=== PATIENT | male | born 1985 | race African-American/Black ===

== ENCOUNTER 2016-04-29 22:25 | Emergency (ER) | payer SELFPAY ==
[~2016-04-29] VITALS: Ht 185.4 cm; Wt 75.0 kg
[2016-04-29 22:29] VITALS: BP 132/88; PULSE 108; RESP 15; TEMP 98.1; O2SAT 97
[2016-04-29 23:23] VITALS: BP 113/74; PULSE 83; RESP 18; O2SAT 100
[2016-04-29] MEDS ORDERED: SODIUM CHLORIDE 0.9% FLUSH 5 ML FLUSH IVF PRN (23:30)
[2016-04-29 23:53] LABS: AUTOMATED NEUTROPHIL # 5.3 TH/MM3 (1.8-7.7); BASOPHIL # 0.1 TH/MM3 (0-0.2); BASOPHIL % 0.8 % (0.0-2.0); EOSINOPHIL # 0.1 TH/MM3 (0-0.4); EOSINOPHIL % 1.2 % (0.0-4.0); HEMATOCRIT 44.9 % (39.0-51.0); HEMO FLAGS DIFF FINAL; LYMPH % 17.2 % (9.0-44.0); LYMPHOCYTE # 1.2 TH/MM3 (1.0-4.8); MEAN CELL VOLUME 95.4 FL (80.0-100.0); MEAN CORPUSCULAR HEMOGLOBIN 33.3 PG (27.0-34.0); MEAN CORPUSCULAR HGB CONC 34.9 % (32.0-36.0); MONO % 4.9 % (0.0-8.0); NEUT % 75.9 % (16.0-70.0); PLATELET COUNT 265 TH/MM3 (150-450); RED CELL DISTRIBUTION WIDTH 13.7 % (11.6-17.2)
--- NOTE | 2016-04-29 23:56 | RADRPT ---
EXAM DATE/TIME: 04/29/2016 23:50 [facility] COMPARISON: CHEST SINGLE AP, January 28, 2016, 5:52. INDICATIONS : Pt having chest pain x 1 hour. MEDICAL HISTORY : Hiatal hernia. SURGICAL HISTORY : Hiatal hernia repair ENCOUNTER: Initial ACUITY: 1 day PAIN SCORE: 7/10 LOCATION: Bilateral chest FINDINGS: A single view of the chest demonstrates the lungs to be symmetrically aerated without evidence of mas s, infiltrate or effusion. The cardiomediastinal contours are unremarkable. Osseous structures are intact. CONCLUSION: No acute disease. Enmanuel Leger MD on April 29, 2016 at 23:54 Board Certified Radiologist. This report was verified electronically.
[2016-04-30 00:17] LABS: ALT (GPT) 21 U/L (12-78); ANION GAP 6 MEQ/L (5-15); AST (GOT) 19 U/L (15-37); BLOOD UREA NITROGEN 8 MG/DL (7-18); CHLORIDE 107 MEQ/L (98-107); GLOMERULAR FILTRATION RATE 96 ML/MIN (>89); MAGNESIUM 1.9 MG/DL (1.5-2.5); SODIUM (NA) 142 MEQ/L (136-145)
[2016-04-30 00:18] LABS: ALKALINE PHOSPHATASE 67 U/L (45-117); TOTAL BILIRUBIN ADULT 0.2 MG/DL (0.2-1.0)
--- NOTE | 2016-04-30 00:45 | PD ---
Data Data Last Documented VS Vital Signs Date Time Temp Pulse Resp B/P Pulse Ox O2 Delivery O2 Flow Rate FiO2 04/29/16 23:23 83 18 113/74 100 Room Air 04/29/16 22:29 98.1 Orders Electrocardiogram (04/29/16 22:32) Complete Blood Count With Diff (04/29/16 23:27) Comprehensive Metabolic Panel (04/29/16 23:27) Magnesium (Mg) (04/29/16 23:27) Prothrombin Time / Inr (Pt) (04/29/16 23:27) Act Partial Throm Time (Ptt) (04/29/16 23:27) Troponin I (04/29/16 23:27) Lipase (04/29/16 23:27) Chest, Single Ap (04/29/16 23:27) Ecg Monitoring (04/29/16 23:27) Bilateral Bp Monitoring (04/29/16 23:27) Iv Access Insert/Monitor (04/29/16 23:27) Oximetry (04/29/16 23:27) Oxygen Administration (04/29/16 23:27) Sodium Chloride 0.9% Flush (Ns Flush) (04/29/16 23:30) Labs Laboratory Tests Test 04/29/16 23:40 White Blood Count 7.0 TH/MM3 Red Blood Count 4.70 MIL/MM3 Hemoglobin 15.7 GM/DL Hematocrit 44.9 % Mean Corpuscular Volume 95.4 FL Mean Corpuscular Hemoglobin 33.3 PG Mean Corpuscular Hemoglobin 34.9 % Concent Red Cell Distribution Width 13.7 % Platelet Count 265 TH/MM3 Mean Platelet Volume 8.0 FL Neutrophils (%) (Auto) 75.9 % Lymphocytes (%) (Auto) 17.2 % Monocytes (%) (Auto) 4.9 % Eosinophils (%) (Auto) 1.2 % Basophils (%) (Auto) 0.8 % Neutrophils # (Auto) 5.3 TH/MM3 Lymphocytes # (Auto) 1.2 TH/MM3 Monocytes # (Auto) 0.3 TH/MM3 Eosinophils # (Auto) 0.1 TH/MM3 Basophils # (Auto) 0.1 TH/MM3 CBC Comment DIFF FINAL Differential Comment Sodium Level 142 MEQ/L Potassium Level 4.0 MEQ/L Chloride Level 107 MEQ/L Carbon Dioxide Level 29.0 MEQ/L Anion Gap 6 MEQ/L Blood Urea Nitrogen 8 MG/DL Creatinine 1.09 MG/DL Estimat Glomerular Filtration 96 ML/MIN Rate Random Glucose 87 MG/DL Calcium Level 8.9 MG/DL Magnesium Level 1.9 MG/DL Total Bilirubin 0.2 MG/DL Aspartate Amino Transf 19 U/L (AST/SGOT) Alanine Aminotransferase 21 U/L (ALT/SGPT) Alkaline Phosphatase 67 U/L Troponin I LESS THAN 0.02 NG/ML Total Protein 7.1 GM/DL Albumin 3.9 GM/DL Lipase 138 U/L MDM Supervised Visit with [facility]: No Narrative Course Protocol labs were put in. Patient left prior to being seen. Patient Instructions: General Instructions, Against Medical Advice (ED) Departure Forms: Tests/Procedures Scripts No Active Prescriptions or Reported Meds Disposition: 07 AGAINST MEDICAL ADVICE Anderson Alvarez MD Apr 30, 2016 00:45
--- NOTE | 2016-04-30 16:27 | EKG ---
Date Performed: 04/29/2016 Time Performed: 22:38:01 PTAGE: 31 years EKG: Sinus rhythm POSSIBLE RIGHT VENTRICULAR CONDUCTION DELAY ABNORMAL RHYTHM ECG PREVIOUS TRACING : 01/28/2016 05.05 Compared to prior tracing no significant change DOCTOR: Madi Barraza Interpretating Date/Time 04/30/2016 16:26:49
== END 2016-04-30 00:27 | disposition left against medical advice (07) ==
LOC: NEPC 22:25
DX: R07.9 Chest pain, unspecified (principal)
CPT/HCPCS: 71010; 80053; 83690; 83735; 84484; 85025; 85610; 85730; 93005; 99281

== ENCOUNTER 2016-05-29 18:10 | Emergency (ER) | payer SELFPAY ==
[~2016-05-29] VITALS: Ht 185.4 cm; Wt 76.0 kg
[2016-05-29 18:12] VITALS: BP 138/88; PULSE 116; RESP 20; TEMP 97.7; O2SAT 94
[2016-05-29] MEDS ORDERED: SODIUM CHLOR 0.9% 1000 ML INJ 1,000 ML IV SCH ×2 (19:05→20:16)
[2016-05-29] MEDS ORDERED: ONDANSETRON HCL 4 MG/2 ML VIAL IVP ONE (19:15)
[2016-05-29] MEDS ORDERED: LORazepam 2 MG/ML VIAL IV PUSH ONE (19:15)
--- NOTE | 2016-05-29 19:21 | RADRPT ---
EXAM DATE/TIME: 05/29/2016 19:04 [facility] COMPARISON: CHEST SINGLE AP, April 29, 2016, 23:50. INDICATIONS : Chest pain. MEDICAL HISTORY : Hiatal hernia. SURGICAL HISTORY : Hiatal hernia repair. ENCOUNTER: Initial ACUITY: 1 day PAIN SCORE: 5/10 LOCATION: Bilateral chest FINDINGS: A single view of the chest demonstrates the lungs to be symmetrically aerated without evidence of mas s, infiltrate or effusion. The cardiomediastinal contours are unremarkable. Osseous structures are intact. CONCLUSION: No acute disease. Jose Daniel Hurtado MD on May 29, 2016 at 19:19 Board Certified Radiologist. This report was verified electronically.
[2016-05-29 19:28] LABS: AUTOMATED NEUTROPHIL # 5.8 TH/MM3 (1.8-7.7); BASOPHIL # 0.1 TH/MM3 (0-0.2); BASOPHIL % 0.6 % (0.0-2.0); EOSINOPHIL % 0.1 % (0.0-4.0); HEMO FLAGS DIFF FINAL; LYMPH % 19.7 % (9.0-44.0); LYMPHOCYTE # 1.7 TH/MM3 (1.0-4.8); MEAN CELL VOLUME 94.8 FL (80.0-100.0); MEAN CORPUSCULAR HEMOGLOBIN 32.7 PG (27.0-34.0); MEAN CORPUSCULAR HGB CONC 34.5 % (32.0-36.0); MONO % 10.3 % (0.0-8.0); NEUT % 69.3 % (16.0-70.0); PLATELET COUNT 247 TH/MM3 (150-450); RED BLOOD COUNT 4.75 MIL/MM3 (4.50-5.90); RED CELL DISTRIBUTION WIDTH 13.5 % (11.6-17.2); WHITE BLOOD COUNT 8.4 TH/MM3 (4.0-11.0)
[2016-05-29 19:55] LABS: AMPHETAMINE, URINE NEG (NEG); BARBITURATES, URINE NEG (NEG); COCAINE, URINE NEG (NEG)
[2016-05-29 19:55] LABS: ANION GAP 11 MEQ/L (5-15); BICARBONATE 26.4 MEQ/L (21.0-32.0); BLOOD UREA NITROGEN 10 MG/DL (7-18); CHLORIDE 101 MEQ/L (98-107); GLOMERULAR FILTRATION RATE 95 ML/MIN (>89); MAGNESIUM 1.9 MG/DL (1.5-2.5); POTASSIUM 3.7 MEQ/L (3.5-5.1); SODIUM (NA) 138 MEQ/L (136-145)
--- NOTE | 2016-05-29 20:07 | PD ---
HPI Chief Complaint: Chest Pain Time Seen by Provider: 20:01 Travel History International Travel<30 days: No Contact w/Intl Traveler<30days: No Traveled to known affect area: No History of Present Illness HPI 31-year-old male that presents to the ED for evaluation of chest pain. Per patient this happened about 2 hours ago. Per patient he was abusing drugs including flack and Xanax. Per patient he was doing this recreationally. Per patient she's had this discomfort before similar with the same history. Per patient he did not lose consciousness. He denies any shortness of breath. Per patient the chest pain comes and goes. It feels like a pressure. Per patient he got concerned because he started getting dizzy as well as having some shakiness which is unusual for him. Per patient he feels anxious. He denies any blurry vision or double vision. He denies any trauma. He denies abusing any other drugs. No cough or runny nose. No fevers chills or sweats. No allergies to medication. Per patient his pain is 8 out of 10. Does not radiate. Nothing makes the pain better or worse. PFSH Past Medical History Hx Anticoagulant Therapy: No Blood Disorders: No Heart Rhythm Problems: No Cancer: No Cardiac Catheterization: No Cardiovascular Problems: No High Cholesterol: No Chemotherapy: No Chest Pain: Yes Congestive Heart Failure: No Cerebrovascular Accident: No Diabetes: No Diminished Hearing: No Endocrine: No Gastrointestinal Disorders: No GERD: Yes Genitourinary: No Hiatal Hernia: Yes Hypertension: No Immune Disorder: No Implanted Vascular Access Dvce: No Musculoskeletal: No Neurologic: No Psychiatric: No Reproductive: No Respiratory: No Immunizations Current: No Thyroid Disease: No Ulcer: Yes Tetanus Vaccination: Unknown Influenza Vaccination: No Past Surgical History Abdominal Surgery: Yes (ABD HERNIA REPAIR) Coronary Artery Bypass Graft: No Other Surgery: Yes Social History Alcohol Use: Yes (1-2 beers a day) Tobacco Use: Yes (1ppd) Substance Use: Yes (flakka,ecstasy) Allergies-Medications (Allergen,Severity, Reaction): Coded Allergies: No Known Allergies (Verified , 05/29/16) Reported Meds & Prescriptions Reported Meds & Active Scripts Active No Active Prescriptions or Reported Medications Review of Systems General / Constitutional: No: Fever, Chills, Weight Gain, Weight Loss, Other Eyes: No: Diploplia, Blurred Vision, Photophobia, Drainage, Redness, Foreign Body Sensation, Pain, Tearing, Blind Spots, Visual changes, Blindness, Other HENT: No: Headaches, Vertigo, Lightheadedness, Sore Throat, Rhinitis, Rhinorrhea, Congestion, Nosebleed, Neck Stiffness, Neck Pain, Masses, Gingival Bleeding, Dental Difficulties, Ear Discharge, Earache, Other Cardiovascular: Positive: Chest Pain or Discomfort, No: Palpitations, Irregular Rhythm, Tachycardia, Diaphoresis, Syncope, Dyspnea on exertion, Varicosities, Edema, Cyanosis, Varicosities, Phlebitis, Claudication, Other Respiratory: Positive: Shortness of Breath, No: Cough, Wheezing, Sneezing, Orthopnea, Hemoptysis, Stridor, Night Sweats, Pleuritic Pain, Other Gastrointestinal: No: Nausea, Vomiting, Diarrhea, Abdominal Pain, Hematemesis, Hematochezia, Constipation, Changes in Bowel Habits, Indigestion, Dysphagia, Loss of Appetite, Other Genitourinary: No: Urgency, Frequency, Dysuria, Nocturia, Hematuria, Decreased Urinary Output, Oliguria, Hesitancy, Dribbling, Incontinence, Pelvic Pain, Flank Pain, Dyspareunia, Discharge, Dysmenorrhea, Menorrhagia, Metorrhagia, Vaginal Bleeding, Other Musculoskeletal: No: Myalgias, Arthralgias, Limited ROM, Weakness, Cramping, Edema, Pain, Atrophy, Other Skin: No Rash, No Itching, No Dryness, No Lumps, No Hives, No Change in Pigmentation, No Change in nails, No Alopecia, No Lesions, No Breast Lumps, No Breast Tenderness, No Breast Swelling, No Other Neurologic: No: Weakness, Dizziness, Syncope, Focal Abnormalities, Coordination Problem, Tremor, Ataxia, Headache, Change in Mentation, Slurred Speech, Paresthesia, Incontinence, Seizures, Sensory Disturbance, Other Psychiatric: Positive: Anxiety, Substance Abuse, No: Depression, Suicidal Ideations, Disorder of Thought, Mood Disorder, Homicidal Ideation, Other Endocrine: No: Heat Intolerance, Cold Intolerance, Polyuria, Polydipsia, Other Hematologic/Lymphatic: No: Easy Bruising, Lymph Node Enlargement, Other Physical Exam Narrative GENERAL: SKIN: Warm and dry. HEAD: Atraumatic. Normocephalic. EYES: Pupils equal and round. No scleral icterus. No injection or drainage. ENT: No nasal bleeding or discharge. Mucous membranes pink and moist. Tongue is midline. No uvula deviation. NECK: Trachea midline. No JVD. CARDIOVASCULAR: Regular rate and rhythm. No murmurs, S3, S4. Pain is not reproducible with touch. RESPIRATORY: No accessory muscle use. Clear to auscultation. Breath sounds equal bilaterally. GASTROINTESTINAL: Abdomen soft, non-tender, nondistended. Hepatic and splenic margins not palpable. MUSCULOSKELETAL: Extremities without clubbing, cyanosis, or edema. No obvious deformities. Full range of motion of the upper and lower extremities bilaterally. 2+ pulses bilaterally. NEUROLOGICAL: Awake and alert. No obvious cranial nerve deficits. Motor grossly within normal limits. Five out of 5 muscle strength in the arms and legs. Normal speech. PSYCHIATRIC: Anxious mood and affect; insight and judgment normal. Data Data Last Documented VS Vital Signs Date Time Temp Pulse Resp B/P Pulse Ox O2 Delivery O2 Flow Rate FiO2 05/29/16 18:58 100 23 99 Room Air 05/29/16 18:12 97.7 138/88 Orders Electrocardiogram (05/29/16 18:38) Complete Blood Count With Diff (05/29/16 18:47) Basic Metabolic Panel (Bmp) (05/29/16 18:47) Ckmb (Isoenzyme) Profile (05/29/16 18:47) Troponin I (05/29/16 18:47) Magnesium (Mg) (05/29/16 18:47) Thyroid Stimulating Hormone (05/29/16 18:47) Chest, Single Ap (05/29/16 18:47) Drug Screen, Random Urine (05/29/16 18:47) Alcohol (Ethanol) (05/29/16 18:47) Ondansetron Inj (Zofran Inj) (05/29/16 19:15) Sodium Chlor 0.9% 1000 Ml Inj (Ns 1000 M (05/29/16 19:05) Lorazepam Inj (Ativan Inj) (05/29/16 19:15) CKMB (05/29/16 19:10) CKMB% (05/29/16 19:10) Sodium Chlor 0.9% 1000 Ml Inj (Ns 1000 M (05/29/16 20:16) Labs Laboratory Tests Test 05/29/16 05/29/16 19:10 19:23 White Blood Count 8.4 TH/MM3 Red Blood Count 4.75 MIL/MM3 Hemoglobin 15.5 GM/DL Hematocrit 45.0 % Mean Corpuscular Volume 94.8 FL Mean Corpuscular Hemoglobin 32.7 PG Mean Corpuscular Hemoglobin 34.5 % Concent Red Cell Distribution Width 13.5 % Platelet Count 247 TH/MM3 Mean Platelet Volume 7.8 FL Neutrophils (%) (Auto) 69.3 % Lymphocytes (%) (Auto) 19.7 % Monocytes (%) (Auto) 10.3 % Eosinophils (%) (Auto) 0.1 % Basophils (%) (Auto) 0.6 % Neutrophils # (Auto) 5.8 TH/MM3 Lymphocytes # (Auto) 1.7 TH/MM3 Monocytes # (Auto) 0.9 TH/MM3 Eosinophils # (Auto) 0.0 TH/MM3 Basophils # (Auto) 0.1 TH/MM3 CBC Comment DIFF FINAL Differential Comment Sodium Level 138 MEQ/L Potassium Level 3.7 MEQ/L Chloride Level 101 MEQ/L Carbon Dioxide Level 26.4 MEQ/L Anion Gap 11 MEQ/L Blood Urea Nitrogen 10 MG/DL Creatinine 1.10 MG/DL Estimat Glomerular Filtration 95 ML/MIN Rate Random Glucose 78 MG/DL Calcium Level 9.3 MG/DL Magnesium Level 1.9 MG/DL Total Creatine Kinase 1583 U/L Troponin I LESS THAN 0.02 NG/ML Thyroid Stimulating Hormone 1.220 uIU/ML 3rd Gen Ethyl Alcohol Level LESS THAN 3 MG/DL Urine Opiates Screen NEG Urine Barbiturates Screen NEG Urine Amphetamines Screen NEG Urine Benzodiazepines Screen NEG Urine Cocaine Screen NEG Urine Cannabinoids Screen NEG [facility] Medical Decision Making Medical Screen Exam Complete: Yes Emergency Medical Condition: Yes Medical Record Reviewed: Yes Interpretation(s) EKG shows some sinus tachycardia but no sign of acute ischemia or arrhythmia. CBC & BMP Diagram 05/29/16 19:10 Last Impressions Chest X-Ray 05/29/16 8717 Signed Impressions: Service Date/Time: Sunday, May 29, 2016 19:04 - CONCLUSION: No acute disease. Jose Daniel Hurtado MD Troponin was negative, CK in the 1000. Differential Diagnosis Chest pain versus a typical chest pain versus substance abuse versus normal exam Narrative Course 31-year-old male that presents to the ED for evaluation of chest pain. Patient was properly examined and was found to have signs and symptoms consistent with appears to be chest pain secondary to substance abuse. Patient states that he only uses Flakka and Xanax. Patient does have a chronic history of substance abuse in the past. This time I will do labs and imaging to rule out any sign of cardiac disease secondary to substance abuse. Labs and imaging were essentially unremarkable this time. Patient was reassured. Patient was given Ativan for his anxiety. At this time patient will be discharged home. Follow up with PCP. Stop using drugs. See ED worsening symptoms. Diagnosis Primary Impression: Chest pain in adult Additional Impressions: Polysubstance abuse Rhabdomyolysis Qualified Code: M62.82 - Non-traumatic rhabdomyolysis Patient Instructions: General Instructions Additional Instructions: Stop using drugs. Follow with PCP. See ED for any worsening symptoms. Drink plenty of fluids. Med/Other Pt SpecificInfo: No Meds Exist/No RX given Scripts No Active Prescriptions or Reported Meds Disposition: 01 DISCHARGE HOME Condition: Stable Karan Harper May 29, 2016 20:07
[2016-05-29 20:15] LABS: CREATINE KINASE 1583 U/L (39-308)
[2016-05-29 20:27] LABS: CKMB 10.3 NG/ML (0.5-3.6)
--- NOTE | 2016-05-29 20:32 | EKG ---
Date Performed: 05/29/2016 Time Performed: 18:42:47 PTAGE: 31 years EKG: ATRIAL FLUTTER/TACHYCARDIA WITH RAPID VENTRICULAR RESPONSE ABNORMAL RHYTHM ECG NO PREVIOUS TRACING DOCTOR: Sky Jyoce Interpretating Date/Time 05/29/2016 20:31:08
[2016-05-29 20:59] VITALS: BP 139/87
== END 2016-05-29 21:00 | disposition home or self-care (01) ==
LOC: NEPE 18:10
DX: R07.9 Chest pain, unspecified (principal); F19.10 Other psychoactive substance abuse, uncomplicated; M62.82 Rhabdomyolysis; R94.31 Abnormal electrocardiogram [ECG] [EKG]; R42 Dizziness and giddiness; F17.200 Nicotine dependence, unspecified, uncomplicated; Z87.19 Personal history of other diseases of the digestive system
CPT/HCPCS: 71010; 80048; 80307; 80320; 82550; 82552; 83735; 84443; 84484; 85025; 93005; 96361; 96374; 96375; 99285; J2060; J2405; J7030

== ENCOUNTER 2016-06-01 23:04 | Emergency (ER) | payer SELFPAY ==
[~2016-06-01] VITALS: Ht 185.4 cm; Wt 73.0 kg
[2016-06-01 23:06] VITALS: BP 138/99; PULSE 114; RESP 16; TEMP 99.1; O2SAT 98
--- NOTE | 2016-06-02 00:27 | PD ---
HPI Chief Complaint: Chest Pain Time Seen by Provider: 00:21 Travel History International Travel<30 days: No Contact w/Intl Traveler<30days: No Traveled to known affect area: No History of Present Illness HPI 31-year-old male here for evaluation of chest pain. Patient was seen in the emergency department for the same about 3 days ago after abusing Xanax and Flakka. He states he has not used these drugs or any other drugs since that time. He reports having a cold sensation across his chest. No dyspnea. No history of cardiac disease. 3 days ago the patient had a negative cardiac workup in the emergency department and was discharged home. PFSH Past Medical History Hx Anticoagulant Therapy: No Blood Disorders: No Heart Rhythm Problems: No Cancer: No Cardiac Catheterization: No Cardiovascular Problems: No High Cholesterol: No Chemotherapy: No Chest Pain: Yes Congestive Heart Failure: No Cerebrovascular Accident: No Diabetes: No Diminished Hearing: No Endocrine: No Gastrointestinal Disorders: No GERD: Yes Genitourinary: No Hiatal Hernia: Yes Hypertension: No Immune Disorder: No Implanted Vascular Access Dvce: No Musculoskeletal: No Neurologic: No Psychiatric: No Reproductive: No Respiratory: No Immunizations Current: No Thyroid Disease: No Ulcer: Yes Tetanus Vaccination: Unknown Influenza Vaccination: No Past Surgical History Abdominal Surgery: Yes (ABD HERNIA REPAIR) Coronary Artery Bypass Graft: No Other Surgery: Yes Social History Alcohol Use: Yes (1-2 beers a day) Tobacco Use: Yes (1ppd) Substance Use: Yes (flakka,ecstasy) Allergies-Medications (Allergen,Severity, Reaction): Coded Allergies: No Known Allergies (Verified , 06/01/16) Reported Meds & Prescriptions Reported Meds & Active Scripts Active No Active Prescriptions or Reported Medications Review of Systems Except as stated in HPI: all other systems reviewed are Neg Physical Exam Narrative GENERAL: Well-developed, well-nourished, comfortable, no acute distress. SKIN: Warm and dry. HEAD: Atraumatic. Normocephalic. EYES: Pupils equal and round. No scleral icterus. No injection or drainage. ENT: No nasal bleeding or discharge. Mucous membranes pink and moist. NECK: Trachea midline. No JVD. CARDIOVASCULAR: Regular rate and rhythm. RESPIRATORY: No accessory muscle use. Clear to auscultation. Breath sounds equal bilaterally. MUSCULOSKELETAL: No obvious deformities. No clubbing. No cyanosis. No edema. NEUROLOGICAL: Awake and alert. No obvious cranial nerve deficits. Motor grossly within normal limits. Normal speech. PSYCHIATRIC: Appropriate mood and affect; insight and judgment normal. Data Data Last Documented VS Vital Signs Date Time Temp Pulse Resp B/P Pulse Ox O2 Delivery O2 Flow Rate FiO2 06/02/16 00:39 77 16 141/81 98 Room Air 06/01/16 23:06 99.1 Orders Electrocardiogram (06/02/16 00:24) Basic Metabolic Panel (Bmp) (06/02/16 00:24) Ckmb (Isoenzyme) Profile (06/02/16 00:24) Complete Blood Count With Diff (06/02/16:24) Troponin I (06/02/16:24) Chest, Single Ap (06/02/16:24) Ecg Monitoring (06/02/16:24) Iv Access Insert/Monitor (06/02/16:24) Oximetry (06/02/16 00:24) Sodium Chloride 0.9% Flush (Ns Flush) (06/02/16 00:30) CKMB (06/02/16 00:30) CKMB% (06/02/16 00:30) Labs Laboratory Tests Test 06/02/16 00:30 White Blood Count 6.3 TH/MM3 Red Blood Count 4.90 MIL/MM3 Hemoglobin 16.0 GM/DL Hematocrit 46.6 % Mean Corpuscular Volume 95.1 FL Mean Corpuscular Hemoglobin 32.5 PG Mean Corpuscular Hemoglobin 34.2 % Concent Red Cell Distribution Width 13.5 % Platelet Count 293 TH/MM3 Mean Platelet Volume 8.6 FL Neutrophils (%) (Auto) 72.7 % Lymphocytes (%) (Auto) 21.5 % Monocytes (%) (Auto) 4.4 % Eosinophils (%) (Auto) 0.7 % Basophils (%) (Auto) 0.7 % Neutrophils # (Auto) 4.6 TH/MM3 Lymphocytes # (Auto) 1.4 TH/MM3 Monocytes # (Auto) 0.3 TH/MM3 Eosinophils # (Auto) 0.0 TH/MM3 Basophils # (Auto) 0.0 TH/MM3 CBC Comment DIFF FINAL Differential Comment Sodium Level 145 MEQ/L Potassium Level 4.3 MEQ/L Chloride Level 108 MEQ/L Carbon Dioxide Level 29.6 MEQ/L Anion Gap 7 MEQ/L Blood Urea Nitrogen 9 MG/DL Creatinine 1.11 MG/DL Estimat Glomerular Filtration 94 ML/MIN Rate Random Glucose 79 MG/DL Calcium Level 9.3 MG/DL Total Creatine Kinase 525 U/L Creatine Kinase MB 1.5 NG/ML Creatine Kinase MB % 0.3 % Troponin I LESS THAN 0.02 NG/ML MDM Medical Decision Making Medical Screen Exam Complete: Yes Emergency Medical Condition: Yes Medical Record Reviewed: Yes Interpretation(s) EKG: Sinus, rate 85, normal axis, normal intervals, no acute ischemic abnormality. Differential Diagnosis Atypical chest pain, ACS, pneumothorax, peritonitis, PE, pneumonia Narrative Course Initial vital signs showed a heart rate of 114 which improved to 77 without any intervention, blood pressure 138/99, pulse ox 98% on room air, temp of 99.1F. CBC is unremarkable. BMP is unremarkable. Cardiac enzymes are negative. Chest x-ray shows no acute disease. Patient's chest pain is very atypical. He actually describes a cold sensation over his chest. I do not believe his symptoms are cardiac in nature. He is stable for discharge home with outpatient follow-up with a primary care physician this week. He was informed on when to return to the emergency department. He verbalizes understanding and agreement with plan. Diagnosis Primary Impression: Atypical chest pain Referrals: Primary Care Physician 3 days Additional Instructions: Follow-up with a primary care physician this week. Return to the emergency department for worsening symptoms or any other concerns. Scripts No Active Prescriptions or Reported Meds Disposition: 01 DISCHARGE HOME Condition: Stable Fito Burnett MD Jun 02, 2016 00:26
[2016-06-02] MEDS ORDERED: SODIUM CHLORIDE 0.9% FLUSH 5 ML FLUSH IVF PRN (00:30)
[2016-06-02 00:37] VITALS: RESP 16
[2016-06-02 00:39] VITALS: BP 141/81; PULSE 77; RESP 16; O2SAT 98
[2016-06-02 00:54] LABS: AUTOMATED NEUTROPHIL # 4.6 TH/MM3 (1.8-7.7); BASOPHIL % 0.7 % (0.0-2.0); EOSINOPHIL % 0.7 % (0.0-4.0); HEMATOCRIT 46.6 % (39.0-51.0); HEMO FLAGS DIFF FINAL; LYMPH % 21.5 % (9.0-44.0); LYMPHOCYTE # 1.4 TH/MM3 (1.0-4.8); MEAN CELL VOLUME 95.1 FL (80.0-100.0); MEAN CORPUSCULAR HEMOGLOBIN 32.5 PG (27.0-34.0); MEAN CORPUSCULAR HGB CONC 34.2 % (32.0-36.0); MONO % 4.4 % (0.0-8.0); NEUT % 72.7 % (16.0-70.0); PLATELET COUNT 293 TH/MM3 (150-450); RED CELL DISTRIBUTION WIDTH 13.5 % (11.6-17.2); WHITE BLOOD COUNT 6.3 TH/MM3 (4.0-11.0)
[2016-06-02 01:18] LABS: CREATINE KINASE 525 U/L (39-308)
[2016-06-02 01:30] LABS: CKMB 1.5 NG/ML (0.5-3.6)
[2016-06-02 01:35] LABS: ANION GAP 7 MEQ/L (5-15); BICARBONATE 29.6 MEQ/L (21.0-32.0); BLOOD UREA NITROGEN 9 MG/DL (7-18); CHLORIDE 108 MEQ/L (98-107); GLOMERULAR FILTRATION RATE 94 ML/MIN (>89); POTASSIUM 4.3 MEQ/L (3.5-5.1); SODIUM (NA) 145 MEQ/L (136-145)
--- NOTE | 2016-06-02 01:42 | RADRPT ---
EXAM DATE/TIME: 06/02/2016 01:07 [facility] COMPARISON: CHEST SINGLE AP, May 29, 2016, 19:04. INDICATIONS : Chest pain. MEDICAL HISTORY : None. SURGICAL HISTORY : None. ENCOUNTER: Initial ACUITY: 1 day PAIN SCORE: 7/10 LOCATION: Bilateral chest FINDINGS: A single view of the chest demonstrates the lungs to be symmetrically aerated without evidence of mas s, infiltrate or effusion. The cardiomediastinal contours are unremarkable. Osseous structures are intact. CONCLUSION: No acute disease. Collins De La Torre MD on June 02, 2016 at 1:39 Board Certified Radiologist. This report was verified electronically.
--- NOTE | 2016-06-02 10:03 | EKG ---
Date Performed: 06/02/2016 Time Performed: 00:29:27 PTAGE: 31 years EKG: Sinus rhythm NORMAL ECG NO PREVIOUS TRACING DOCTOR: Anderson Lowery Interpretating Date/Time 06/02/2016 10:02:18
== END 2016-06-02 02:01 | disposition home or self-care (01) ==
LOC: NEPC 23:04
DX: R07.89 Other chest pain (principal); F17.210 Nicotine dependence, cigarettes, uncomplicated
CPT/HCPCS: 71010; 80048; 82550; 82552; 84484; 85025; 93005

== ENCOUNTER 2016-06-02 21:17 | Emergency (ER) | payer SELFPAY ==
[~2016-06-02] VITALS: Ht 182.9 cm; Wt 65.0 kg
[2016-06-02 21:23] VITALS: BP 118/63; PULSE 98; RESP 16; TEMP 98.5; O2SAT 98
[2016-06-02] MEDS ORDERED: ASPIRIN 81 MG CHEW TAB PO ONE (21:45)
[2016-06-02] MEDS ORDERED: SODIUM CHLOR 0.9% 1000 ML INJ 1,000 ML IV ONE (21:45)
--- NOTE | 2016-06-02 22:45 | RADRPT ---
EXAM DATE/TIME: 06/02/2016 21:48 [facility] COMPARISON: CHEST PA & LAT, October 20, 2014, 14:18. INDICATIONS : Chest pain. MEDICAL HISTORY : Hiatal hernia. SURGICAL HISTORY : Hiatal hernia repair. ENCOUNTER: Initial ACUITY: 1 day PAIN SCORE: 5/10 LOCATION: chest FINDINGS: PA and lateral views of the chest demonstrate the lungs to be symmetrically aerated without evidence of mass, infiltrate or effusion. The cardiomediastinal contours are unremarkable. Osseous structure s are intact. CONCLUSION: No acute disease. No significant change has occurred. Brain Rodriguez MD on June 02, 2016 at 22:43 Board Certified Radiologist. This report was verified electronically.
[2016-06-02 22:48] LABS: AUTOMATED NEUTROPHIL # 3.8 TH/MM3 (1.8-7.7); BASOPHIL # 0.1 TH/MM3 (0-0.2); EOSINOPHIL % 0.2 % (0.0-4.0); HEMO FLAGS DIFF FINAL; LYMPH % 25.4 % (9.0-44.0); LYMPHOCYTE # 1.5 TH/MM3 (1.0-4.8); MEAN CELL VOLUME 95.2 FL (80.0-100.0); MEAN CORPUSCULAR HEMOGLOBIN 32.7 PG (27.0-34.0); MEAN CORPUSCULAR HGB CONC 34.4 % (32.0-36.0); NEUT % 65.4 % (16.0-70.0); PLATELET COUNT 254 TH/MM3 (150-450); RED BLOOD COUNT 4.41 MIL/MM3 (4.50-5.90); RED CELL DISTRIBUTION WIDTH 13.4 % (11.6-17.2); WHITE BLOOD COUNT 5.9 TH/MM3 (4.0-11.0)
[2016-06-02 23:01] LABS: APTT (PATIENT) 27.7 SEC (24.3-30.1); PROTHROMBIN TIME - PATIENT 10.7 SEC (9.8-11.6)
[2016-06-02 23:12] VITALS: BP 134/88; PULSE 86; RESP 18; O2SAT 100
[2016-06-02 23:12] LABS: ANION GAP 12 MEQ/L (5-15); AST (GOT) 32 U/L (15-37); BICARBONATE 23.6 MEQ/L (21.0-32.0); BLOOD UREA NITROGEN 8 MG/DL (7-18); CHLORIDE 103 MEQ/L (98-107); GLOMERULAR FILTRATION RATE 90 ML/MIN (>89); POTASSIUM 3.9 MEQ/L (3.5-5.1); SODIUM (NA) 139 MEQ/L (136-145)
[2016-06-02 23:23] LABS: ALKALINE PHOSPHATASE 50 U/L (45-117); ALT (GPT) 29 U/L (12-78); CREATINE KINASE 489 U/L (39-308); TOTAL BILIRUBIN ADULT 0.5 MG/DL (0.2-1.0)
[2016-06-02 23:35] LABS: CKMB 2.3 NG/ML (0.5-3.6)
--- NOTE | 2016-06-03 01:04 | PD ---
HPI Chief Complaint: Chest Pain Time Seen by Provider: 21:29 Travel History International Travel<30 days: No Contact w/Intl Traveler<30days: No Traveled to known affect area: No History of Present Illness HPI Patient is a 31-year-old male who comes in complaining of chest pain radiating to his left arm. He has been here multiple times in the past few weeks for the same complaint. He says he used Floxin tonight and the pain started a few hours after that. This is the same story each time he comes in. He denies fever or chills. He denies shortness of breath, nausea or vomiting. He has no cardiac problems that he knows of. PFSH Past Medical History Hx Anticoagulant Therapy: No Blood Disorders: No Heart Rhythm Problems: No Cancer: No Cardiac Catheterization: No Cardiovascular Problems: No High Cholesterol: No Chemotherapy: No Chest Pain: Yes Congestive Heart Failure: No Cerebrovascular Accident: No Diabetes: No Diminished Hearing: No Endocrine: No Gastrointestinal Disorders: No GERD: Yes Genitourinary: No Hiatal Hernia: Yes Hypertension: No Immune Disorder: No Implanted Vascular Access Dvce: No Musculoskeletal: No Neurologic: No Psychiatric: No Reproductive: No Respiratory: No Immunizations Current: No Thyroid Disease: No Ulcer: Yes Tetanus Vaccination: Unknown Influenza Vaccination: No Past Surgical History Abdominal Surgery: Yes (ABD HERNIA REPAIR) Coronary Artery Bypass Graft: No Other Surgery: Yes Social History Alcohol Use: Yes (1-2 beers a day) Tobacco Use: Yes (1ppd) Substance Use: Yes (flakka,ecstasy) Allergies-Medications (Allergen,Severity, Reaction): Coded Allergies: No Known Allergies (Verified , 06/02/16) Reported Meds & Prescriptions Reported Meds & Active Scripts Active No Active Prescriptions or Reported Medications Review of Systems Except as stated in HPI: all other systems reviewed are Neg General / Constitutional: No: Fever, Chills HENT: No: Headaches Cardiovascular: Positive: Chest Pain or Discomfort Respiratory: No: Shortness of Breath Gastrointestinal: No: Nausea, Vomiting Musculoskeletal: Positive: Pain Skin: No Rash, No Change in Pigmentation Neurologic: No: Weakness, Dizziness Physical Exam Narrative GENERAL: Awake and alert, in no acute distress. SKIN: Warm and dry. HEAD: Atraumatic. Normocephalic. EYES: Pupils equal and round. No scleral icterus. Extraocular movements intact. ENT: Mucous membranes pink and moist. NECK: Trachea midline. No JVD. CARDIOVASCULAR: Regular rate and rhythm. No murmur appreciated. RESPIRATORY: No accessory muscle use. Clear to auscultation. Breath sounds equal bilaterally. GASTROINTESTINAL: Abdomen soft, non-tender, nondistended. MUSCULOSKELETAL: No obvious deformities. No clubbing. No cyanosis. No edema. NEUROLOGICAL: Awake and alert. No obvious cranial nerve deficits. Motor grossly within normal limits. Normal speech. PSYCHIATRIC: Appropriate mood and affect; insight and judgment normal. Data Data Last Documented VS Vital Signs Date Time Temp Pulse Resp B/P Pulse Ox O2 Delivery O2 Flow Rate FiO2 06/02/16 23:12 86 18 134/88 100 Room Air 06/02/16 21:23 98.5 Orders Ckmb (Isoenzyme) Profile (06/02/16 21:37) Complete Blood Count With Diff (06/02/16 21:37) Comprehensive Metabolic Panel (06/02/16 21:37) Prothrombin Time / Inr (Pt) (06/02/16 21:37) Act Partial Throm Time (Ptt) (06/02/16 21:37) Troponin I (06/02/16 21:37) Aspirin Chew (Aspirin Chew) (06/02/16 21:45) Chest, Pa & Lat (06/02/16 21:37) Sodium Chlor 0.9% 1000 Ml Inj (Ns 1000 M (06/02/16 21:45) CKMB (06/02/16 21:42) CKMB% (06/02/16 21:42) Labs Laboratory Tests Test 06/02/16 21:42 White Blood Count 5.9 TH/MM3 Red Blood Count 4.41 MIL/MM3 Hemoglobin 14.4 GM/DL Hematocrit 42.0 % Mean Corpuscular Volume 95.2 FL Mean Corpuscular Hemoglobin 32.7 PG Mean Corpuscular Hemoglobin 34.4 % Concent Red Cell Distribution Width 13.4 % Platelet Count 254 TH/MM3 Mean Platelet Volume 8.5 FL Neutrophils (%) (Auto) 65.4 % Lymphocytes (%) (Auto) 25.4 % Monocytes (%) (Auto) 8.0 % Eosinophils (%) (Auto) 0.2 % Basophils (%) (Auto) 1.0 % Neutrophils # (Auto) 3.8 TH/MM3 Lymphocytes # (Auto) 1.5 TH/MM3 Monocytes # (Auto) 0.5 TH/MM3 Eosinophils # (Auto) 0.0 TH/MM3 Basophils # (Auto) 0.1 TH/MM3 CBC Comment DIFF FINAL Differential Comment Prothrombin Time 10.7 SEC Prothromb Time International 1.0 RATIO Ratio Activated Partial 27.7 SEC Thromboplast Time Sodium Level 139 MEQ/L Potassium Level 3.9 MEQ/L Chloride Level 103 MEQ/L Carbon Dioxide Level 23.6 MEQ/L Anion Gap 12 MEQ/L Blood Urea Nitrogen 8 MG/DL Creatinine 1.16 MG/DL Estimat Glomerular Filtration 90 ML/MIN Rate Random Glucose 51 MG/DL Calcium Level 8.6 MG/DL Total Bilirubin 0.5 MG/DL Aspartate Amino Transf 32 U/L (AST/SGOT) Alanine Aminotransferase 29 U/L (ALT/SGPT) Alkaline Phosphatase 50 U/L Total Creatine Kinase 489 U/L Creatine Kinase MB 2.3 NG/ML Creatine Kinase MB % 0.5 % Troponin I LESS THAN 0.02 NG/ML Total Protein 7.2 GM/DL Albumin 4.0 GM/DL MDM Medical Decision Making Medical Screen Exam Complete: Yes Emergency Medical Condition: Yes Medical Record Reviewed: Yes Interpretation(s) ECG shows normal sinus rhythm at 96, no ST elevation or depression. Differential Diagnosis Drug abuse versus ACS (unlikely) versus musculoskeletal pain Narrative Course Patient is a 31-year-old male who comes in complaining of chest pain after using Flock. He has been here multiple times to the same thing. Exam shows no acute abnormalities. IV established, patient connected to the tray server. Labs sent. Troponin is negative. Labs show no other acute abnormalities. Patient advised to stop using Flock. He is asking to leave. Will be discharged home. Advised to return to the ED as needed for any worsening symptoms. Diagnosis Primary Impression: Chest pain in adult Additional Impression: Drug abuse, amphetamine type Patient Instructions: Chest Pain (ED), General Instructions Additional Instructions: Stop using Flacca. Follow up with a primary physician. Return to the ED as needed for any worsening symptoms Scripts No Active Prescriptions or Reported Meds Disposition: 01 DISCHARGE HOME Condition: Stable Vannessa Vitale MD Jun 03, 2016 01:04
--- NOTE | 2016-06-03 23:49 | EKG ---
Date Performed: 06/02/2016 Time Performed: 21:25:59 PTAGE: 31 years EKG: Sinus rhythm SEPTAL MYOCARDIAL INFARCTION ABNORMAL ECG PREVIOUS TRACING : 06/02/2016 00.29 Compared to prior tracing no significant change DOCTOR: Madi Barraza Interpretating Date/Time 06/03/2016 23:48:28
== END 2016-06-03 04:15 | disposition home or self-care (01) ==
LOC: NEPE 21:17
DX: R07.9 Chest pain, unspecified (principal); F15.10 Other stimulant abuse, uncomplicated; R94.31 Abnormal electrocardiogram [ECG] [EKG]; M79.602 Pain in left arm; F17.200 Nicotine dependence, unspecified, uncomplicated; Z87.19 Personal history of other diseases of the digestive system
CPT/HCPCS: 71020; 80053; 82550; 82552; 84484; 85025; 85610; 85730; 93005; 99285; J7030

== ENCOUNTER 2016-06-10 05:52 | Emergency (ER) | payer SELFPAY ==
[~2016-06-10] VITALS: Ht 177.8 cm; Wt 72.0 kg
[2016-06-10 06:01] VITALS: BP 154/92; PULSE 124; RESP 18; TEMP 98.9; O2SAT 97
[2016-06-10] MEDS ORDERED: SODIUM CHLORIDE 0.9% FLUSH 5 ML FLUSH IVF PRN (06:15)
[2016-06-10] MEDS ORDERED: SODIUM CHLOR 0.9% 1000 ML INJ 1,000 ML IV ONE (06:15)
[2016-06-10] MEDS ORDERED: ASPIRIN 81 MG CHEW TAB PO ONE (06:15)
[2016-06-10 06:48] VITALS: RESP 20; O2SAT 97
[2016-06-10 06:49] VITALS: BP_SYST 158; BP_SYST 160; BP_DIAS 85; BP_DIAS 90
--- NOTE | 2016-06-10 06:50 | RADRPT ---
EXAM DATE/TIME: 06/10/2016 06:19 [facility] COMPARISON: CHEST SINGLE AP, June 02, 2016, 1:07. INDICATIONS : Chest pain. MEDICAL HISTORY : None. SURGICAL HISTORY : None. ENCOUNTER: Initial ACUITY: 1 day PAIN SCORE: 7/10 LOCATION: Bilateral chest FINDINGS: A single view of the chest demonstrates the lungs to be symmetrically aerated without evidence of mas s, infiltrate or effusion. The cardiomediastinal contours are unremarkable. Osseous structures are intact. CONCLUSION: No acute cardiopulmonary process. Deshaun Massey MD on June 10, 2016 at 6:49 Board Certified Radiologist. This report was verified electronically.
--- NOTE | 2016-06-10 06:56 | PD ---
HPI Chief Complaint: Chest Pain Time Seen by Provider: 06:10 Travel History International Travel<30 days: No Contact w/Intl Traveler<30days: No Traveled to known affect area: No History of Present Illness HPI 31-year-old male presents to the emergency department for evaluation of chest pain. Patient reports just prior to onset of chest pain and prior to arrival to the emergency department ingested Flakka. Patient complains of chest pain and racing of his heart. No syncope no near syncope no shortness of breath no sweats no nausea no vomiting. Patient denies chronic medical conditions asthma cardiac disease or diabetes. Patient rates pain as moderate to severe. Patient denies any back pain abdominal pain or extremity pain. Patient denies any injury or fall. Patient unable to identify exacerbating or alleviating factors. PFSH Past Medical History Narrative Medical Chest pain reflux hiatal hernia herniorrhaphy alcohol use tobacco use substance abuse nursing notes reviewed Hx Anticoagulant Therapy: No Blood Disorders: No Heart Rhythm Problems: No Cancer: No Cardiac Catheterization: No Cardiovascular Problems: No High Cholesterol: No Chemotherapy: No Chest Pain: Yes Congestive Heart Failure: No Cerebrovascular Accident: No Diabetes: No Diminished Hearing: No Endocrine: No Gastrointestinal Disorders: No GERD: Yes Genitourinary: No Hiatal Hernia: Yes Hypertension: No Immune Disorder: No Implanted Vascular Access Dvce: No Musculoskeletal: No Neurologic: No Psychiatric: No Reproductive: No Respiratory: No Immunizations Current: No Thyroid Disease: No Ulcer: Yes Past Surgical History Abdominal Surgery: Yes (ABD HERNIA REPAIR) Coronary Artery Bypass Graft: No Other Surgery: Yes Social History Alcohol Use: Yes (1-2 beers a day) Tobacco Use: Yes (1ppd) Substance Use: Yes (flakka,ecstasy) Allergies-Medications (Allergen,Severity, Reaction): Coded Allergies: No Known Allergies (Verified , 06/10/16) Reported Meds & Prescriptions Reported Meds & Active Scripts Active No Active Prescriptions or Reported Medications Review of Systems Except as stated in HPI: all other systems reviewed are Neg General / Constitutional: No: Fever, Chills HENT: No: Congestion Cardiovascular: Positive: Chest Pain or Discomfort Respiratory: No: Shortness of Breath Gastrointestinal: No: Nausea, Vomiting, Abdominal Pain Genitourinary: No: Flank Pain Musculoskeletal: No: Myalgias, Arthralgias Skin: No Rash Neurologic: No: Weakness Psychiatric: Positive: Anxiety, Substance Abuse Hematologic/Lymphatic: No: Lymph Node Enlargement Physical Exam Narrative GENERAL: Well-developed well-nourished male in no acute distress no respiratory distress; GCS 15 SKIN: Warm and dry. HEAD: Atraumatic. Normocephalic. EYES: Pupils equal and round. No scleral icterus. No injection or drainage. ENT: No nasal bleeding or discharge. Mucous membranes pink and moist. NECK: Trachea midline. No JVD. CARDIOVASCULAR: Increased Regular rate and rhythm. RESPIRATORY: No accessory muscle use. Clear to auscultation. Breath sounds equal bilaterally. GASTROINTESTINAL: Abdomen soft, non-tender, nondistended. Hepatic and splenic margins not palpable. MUSCULOSKELETAL: Extremities without clubbing, cyanosis, or edema. No obvious deformities. NEUROLOGICAL: Awake and alert. No obvious cranial nerve deficits. Motor grossly within normal limits. Five out of 5 muscle strength in the arms and legs. Normal speech. PSYCHIATRIC: Appropriate mood and affect; insight and judgment normal. Data Data Last Documented VS Vital Signs Date Time Temp Pulse Resp B/P Pulse Ox O2 Delivery O2 Flow Rate FiO2 06/10/16 06:49 160/90 158/85 06/10/16 06:48 20 97 Room Air 06/10/16 06:01 98.9 124 Orders Electrocardiogram (06/10/16 06:10) Basic Metabolic Panel (Bmp) (06/10/16 06:10) Ckmb (Isoenzyme) Profile (06/10/16 06:10) Complete Blood Count With Diff (06/10/16 06:10) Magnesium (Mg) (06/10/16 06:10) Prothrombin Time / Inr (Pt) (06/10/16 06:10) Act Partial Throm Time (Ptt) (06/10/16 06:10) Troponin I (06/10/16 06:10) Chest, Single Ap (06/10/16 06:10) Ecg Monitoring (06/10/16 06:10) Bilateral Bp Monitoring (06/10/16 06:10) Iv Access Insert/Monitor (06/10/16 06:10) Oximetry (06/10/16 06:10) Oxygen Administration (06/10/16 06:10) Aspirin Chew (Aspirin Chew) (06/10/16 06:15) Sodium Chloride 0.9% Flush (Ns Flush) (06/10/16 06:15) Sodium Chlor 0.9% 1000 Ml Inj (Ns 1000 M (06/10/16 06:15) Alcohol (Ethanol) (06/10/16 06:10) Drug Screen, Random Urine (06/10/16 06:10) Nitroglycerin Sl (Nitrostat Sl) (06/10/16 07:15) Labs Laboratory Tests Test 06/10/16 06:40 Prothrombin Time 10.9 SEC Prothromb Time International 1.0 RATIO Ratio Activated Partial 25.4 SEC Thromboplast Time MDM Medical Decision Making Medical Screen Exam Complete: Yes Emergency Medical Condition: Yes Medical Record Reviewed: Yes Interpretation(s) EKGs sinus rhythm QS septally with out reciprocal changes age-indeterminate noted on previous EKG 06/02/16 Differential Diagnosis Chest pain, ACS, myocardial infarction, aortic dissection, PE, pneumothorax, esophageal spasm, polysubstance abuse Narrative Course Patient placed on manager monitoring IV access obtained specimens collected and sent for resulting EKG ordered patient administered aspirin 162 mg by mouth and normal saline bolus Scripts No Active Prescriptions or Reported Meds Elisha Bae MD Jun 10, 2016 06:56
[2016-06-10] MEDS ORDERED: NITROGLYCERIN 0.4 MG SL 25 TABS/BTL SL PRN (07:15)
[2016-06-10 07:19] LABS: PROTHROMBIN TIME - PATIENT 10.9 SEC (9.8-11.6)
[2016-06-10 07:20] LABS: APTT (PATIENT) 25.4 SEC (24.3-30.1)
[2016-06-10 07:34] LABS: ANION GAP 8 MEQ/L (5-15); BICARBONATE 24.9 MEQ/L (21.0-32.0); BLOOD UREA NITROGEN 8 MG/DL (7-18); CHLORIDE 107 MEQ/L (98-107); CREATINE KINASE 296 U/L (39-308); GLOMERULAR FILTRATION RATE 101 ML/MIN (>89); MAGNESIUM 1.7 MG/DL (1.5-2.5); SODIUM (NA) 140 MEQ/L (136-145)
[2016-06-10 07:37] LABS: POTASSIUM 4.7 MEQ/L (3.5-5.1)
[2016-06-10 07:54] LABS: CKMB 2.1 NG/ML (0.5-3.6)
[2016-06-10 08:03] LABS: AUTOMATED NEUTROPHIL # 3.4 TH/MM3 (1.8-7.7); BASOPHIL % 0.9 % (0.0-2.0); EOSINOPHIL % 0.7 % (0.0-4.0); HEMATOCRIT 41.3 % (39.0-51.0); HEMO FLAGS DIFF FINAL; LYMPH % 26.8 % (9.0-44.0); LYMPHOCYTE # 1.4 TH/MM3 (1.0-4.8); MEAN CELL VOLUME 95.1 FL (80.0-100.0); MEAN CORPUSCULAR HEMOGLOBIN 33.1 PG (27.0-34.0); MEAN CORPUSCULAR HGB CONC 34.8 % (32.0-36.0); NEUT % 65.6 % (16.0-70.0); PLATELET COUNT 233 TH/MM3 (150-450); RED BLOOD COUNT 4.35 MIL/MM3 (4.50-5.90); RED CELL DISTRIBUTION WIDTH 13.3 % (11.6-17.2); WHITE BLOOD COUNT 5.1 TH/MM3 (4.0-11.0)
[2016-06-10 08:23] VITALS: BP 128/72; PULSE 93; RESP 12; O2SAT 100
[2016-06-10 09:25] VITALS: BP 134/86; PULSE 88; RESP 14; O2SAT 100
--- NOTE | 2016-06-10 09:26 | PD ---
Physical Exam Date Seen by Provider: Jun 10, 2016 Time Seen by Provider: 09:24 Narrative 31-year-old male who has been in the ER multiple times for chest pain came in earlier and was seen by the previous ER physician for chest pain. Sign out was to follow-up on the blood test results. Patient has extremely low risk for coronary artery disease and hence as per the previous ER physician's opinion patient could go home if the workup was negative. Test results are back and they're all within normal limits including the troponin. Chest x-rays within normal limit as well. Patient continues to have chest pain. In my opinion he has history of chronic chest pain. I will discharge him and have her follow up with his primary care at this point. Data Data Last Documented VS Vital Signs Date Time Temp Pulse Resp B/P Pulse Ox O2 Delivery O2 Flow Rate FiO2 06/10/16 09:25 88 14 134/86 100 Room Air Orders Electrocardiogram (06/10/16 06:10) Basic Metabolic Panel (Bmp) (06/10/16 06:10) Ckmb (Isoenzyme) Profile (06/10/16 06:10) Complete Blood Count With Diff (06/10/16 06:10) Magnesium (Mg) (06/10/16 06:10) Prothrombin Time / Inr (Pt) (06/10/16 06:10) Act Partial Throm Time (Ptt) (06/10/16 06:10) Troponin I (06/10/16 06:10) Chest, Single Ap (06/10/16 06:10) Ecg Monitoring (06/10/16 06:10) Bilateral Bp Monitoring (06/10/16 06:10) Iv Access Insert/Monitor (06/10/16 06:10) Oximetry (06/10/16 06:10) Oxygen Administration (06/10/16 06:10) Aspirin Chew (Aspirin Chew) (06/10/16 06:15) Sodium Chloride 0.9% Flush (Ns Flush) (06/10/16 06:15) Sodium Chlor 0.9% 1000 Ml Inj (Ns 1000 M (06/10/16 06:15) Alcohol (Ethanol) (06/10/16 06:10) Nitroglycerin Sl (Nitrostat Sl) (06/10/16 07:15) CKMB (06/10/16 06:40) CKMB% (06/10/16 06:40) Ketorolac Inj (Toradol Inj) (06/10/16 09:30) Labs Laboratory Tests Test 06/10/16 06/10/16 06:40 07:45 Prothrombin Time 10.9 SEC Prothromb Time International 1.0 RATIO Ratio Activated Partial 25.4 SEC Thromboplast Time Sodium Level 140 MEQ/L Potassium Level 4.7 MEQ/L Chloride Level 107 MEQ/L Carbon Dioxide Level 24.9 MEQ/L Anion Gap 8 MEQ/L Blood Urea Nitrogen 8 MG/DL Creatinine 1.05 MG/DL Estimat Glomerular Filtration 101 ML/MIN Rate Random Glucose 94 MG/DL Calcium Level 8.7 MG/DL Magnesium Level 1.7 MG/DL Total Creatine Kinase 296 U/L Creatine Kinase MB 2.1 NG/ML Troponin I LESS THAN 0.02 NG/ML Ethyl Alcohol Level LESS THAN 3 MG/DL White Blood Count 5.1 TH/MM3 Red Blood Count 4.35 MIL/MM3 Hemoglobin 14.4 GM/DL Hematocrit 41.3 % Mean Corpuscular Volume 95.1 FL Mean Corpuscular Hemoglobin 33.1 PG Mean Corpuscular Hemoglobin 34.8 % Concent Red Cell Distribution Width 13.3 % Platelet Count 233 TH/MM3 Mean Platelet Volume 8.1 FL Neutrophils (%) (Auto) 65.6 % Lymphocytes (%) (Auto) 26.8 % Monocytes (%) (Auto) 6.0 % Eosinophils (%) (Auto) 0.7 % Basophils (%) (Auto) 0.9 % Neutrophils # (Auto) 3.4 TH/MM3 Lymphocytes # (Auto) 1.4 TH/MM3 Monocytes # (Auto) 0.3 TH/MM3 Eosinophils # (Auto) 0.0 TH/MM3 Basophils # (Auto) 0.0 TH/MM3 CBC Comment DIFF FINAL Differential Comment MDM Supervised Visit with [facility]IRAG: No Diagnosis Primary Impression: Nonspecific chest pain Additional Impression: Chronic chest pain Referrals: Primary Care Physician 1 week Additional Instruction: Please return to the ER if the condition worsens. Otherwise follow-up with your primary care. Med/Other Pt SpecificInfo: No Change to Meds Scripts No Active Prescriptions or Reported Meds Disposition: 01 DISCHARGE HOME Condition: Stable Humaira Noonan MD Jun 10, 2016 09:26 Humaira Noonan MD Jun 10, 2016 09:26
[2016-06-10] MEDS ORDERED: KETOROLAC TROMETHAMINE 30 MG/ML (IVP) VIAL IV PUSH ONE (09:30)
--- NOTE | 2016-06-11 20:32 | EKG ---
Date Performed: 06/10/2016 Time Performed: 07:11:29 PTAGE: 31 years EKG: Sinus rhythm SEPTAL MYOCARDIAL INFARCTION ABNORMAL ECG Compared to the PREVIOUS TRACING from 06/02/16, no significant change DOCTOR: Timothy Ziegler Interpretating Date/Time 06/11/2016 20:31:50
== END 2016-06-10 10:33 | disposition home or self-care (01) ==
LOC: NEPC 05:52
DX: R07.9 Chest pain, unspecified (principal); F17.210 Nicotine dependence, cigarettes, uncomplicated; F15.90 Other stimulant use, unspecified, uncomplicated; R94.31 Abnormal electrocardiogram [ECG] [EKG]
CPT/HCPCS: 71010; 80048; 80307; 82550; 82552; 83735; 84484; 85025; 85610; 85730; 93005; 96374; 99285; J1885; J7030

== ENCOUNTER 2016-06-15 16:10 | Emergency (ER) | payer SELFPAY ==
[~2016-06-15] VITALS: Ht 185.4 cm; Wt 75.0 kg
[2016-06-15 16:12] VITALS: BP 146/98; PULSE 132; RESP 20; TEMP 97.9; O2SAT 97
[2016-06-15] MEDS ORDERED: ACETAMINOPHEN 500 MG CPLT PO ONE (17:00)
--- NOTE | 2016-06-15 17:32 | RADRPT ---
EXAM DATE/TIME: 06/15/2016 17:14 [facility] COMPARISON: CHEST SINGLE AP, June 10, 2016, 6:19. INDICATIONS : Chest pain for 1 hour. MEDICAL HISTORY : None. SURGICAL HISTORY : None. ENCOUNTER: Initial ACUITY: 1 day PAIN SCORE: 10/10 LOCATION: Bilateral chest FINDINGS: A single view of the chest demonstrates the lungs to be symmetrically aerated without evidence of mas s, infiltrate or effusion. The cardiomediastinal contours are unremarkable. Osseous structures are intact. CONCLUSION: Normal examination. Jesús Zambrano MD on June 15, 2016 at 17:31 Board Certified Radiologist. This report was verified electronically.
--- NOTE | 2016-06-15 17:40 | PD ---
HPI Chief Complaint: Chest Pain Time Seen by Provider: 16:56 Travel History International Travel<30 days: No Contact w/Intl Traveler<30days: No Traveled to known affect area: No History of Present Illness HPI Patient is a 31-year-old male presents emergency department for the fifth time recently with complaint of chest pain after smoking flacca. Patient states that he smoked approximately 1 hour prior to arrival. Shortly after patient developed substernal chest discomfort radiating throughout the chest. This is worse with movement, deep inspiration. He denies any significant shortness of breath. When asked the patient was causing his pain patient states "it's because I smoke". When asked why he doesn't quit, patient states "I like using ". He does not have any cardiac risk factors, no family history of early onset heart disease. No recent travel or PE risk factors. PFSH Past Medical History Hx Anticoagulant Therapy: No Blood Disorders: No Heart Rhythm Problems: No Cancer: No Cardiac Catheterization: No Cardiovascular Problems: No High Cholesterol: No Chemotherapy: No Chest Pain: Yes Congestive Heart Failure: No Cerebrovascular Accident: No Diabetes: No Diminished Hearing: No Endocrine: No Gastrointestinal Disorders: No GERD: Yes Genitourinary: No Hiatal Hernia: Yes Hypertension: No Immune Disorder: No Implanted Vascular Access Dvce: No Musculoskeletal: No Neurologic: No Psychiatric: No Reproductive: No Respiratory: No Immunizations Current: No Thyroid Disease: No Ulcer: Yes Tetanus Vaccination: > 5 Years Past Surgical History Abdominal Surgery: Yes (ABD HERNIA REPAIR) Coronary Artery Bypass Graft: No Other Surgery: Yes Social History Alcohol Use: Yes (1-2 beers a day) Tobacco Use: Yes (1ppd) Substance Use: Yes (flakka,ecstasy- FLAKKA USED 1.5 HRS AGO) Allergies-Medications (Allergen,Severity, Reaction): Coded Allergies: No Known Allergies (Verified , 06/15/16) Reported Meds & Prescriptions Reported Meds & Active Scripts Active No Active Prescriptions or Reported Medications Review of Systems Except as stated in HPI: all other systems reviewed are Neg Physical Exam Narrative GENERAL: Anxious fidgeting male in no acute distress SKIN: Warm and dry. HEAD: Normocephalic. EYES: Pupils equal and round. 5 mm. No scleral icterus. No injection or drainage. ENT: No nasal bleeding or discharge. Mucous membranes pink and moist. NECK: Supple CARDIOVASCULAR: Borderline tachycardic with heart rate in the 90s to 110s, regular rhythm. No murmur appreciated. Reproducible tenderness to palpation of the chest wall. RESPIRATORY: No accessory muscle use. Clear to auscultation. Breath sounds equal bilaterally. GASTROINTESTINAL: Abdomen soft, non-tender, nondistended. MUSCULOSKELETAL: Moves all extremity's normally no edema NEUROLOGICAL: Awake and alert. Normal speech. PSYCHIATRIC: Appropriate mood and affect; insight and judgment normal. Data Data Last Documented VS Vital Signs Date Time Temp Pulse Resp B/P Pulse Ox O2 Delivery O2 Flow Rate FiO2 06/15/16 16:12 97.9 132 20 146/98 97 Orders Electrocardiogram (06/15/16 ) Chest, Single Ap (06/15/16 ) Acetaminophen (Tylenol) (06/15/16 17:00) MDM Medical Decision Making Medical Screen Exam Complete: Yes Emergency Medical Condition: Yes Medical Record Reviewed: Yes Differential Diagnosis 31-year-old male here for the fifth time recently with complaint of chest pain after smoking flacca. Differential includes atypical chest pain, pneumothorax, substance abuse, and less likely PE, dissection, ACS. Narrative Course Patient placed on monitor. Twelve-lead EKG shows sinus tachycardia without notable ST abnormality, normal intervals. Portal chest x-ray obtained that by my read shows no acute abnormalities specifically no evidence of pneumothorax. Patient reassured and encouraged to quit abusing substances and follow-up as outpatient for treatment of his substance abuse. Diagnosis Primary Impression: Chronic chest pain Additional Impression: Polysubstance abuse [facility] Additional Instructions: Seek outpatient management for your substance abuse. Quit using drugs. Med/Other Pt SpecificInfo: No Change to Meds Scripts No Active Prescriptions or Reported Meds Disposition: 01 DISCHARGE HOME Condition: Stable Christy Lew MD Jun 15, 2016 17:40
[2016-06-15 18:02] VITALS: BP 138/81
--- NOTE | 2016-06-16 20:13 | EKG ---
Date Performed: 06/15/2016 Time Performed: 16:24:55 PTAGE: 31 years EKG: SINUS TACHYCARDIA BORDERLINE RIGHT AXIS DEVIATION ABNORMAL RHYTHM ECG Compared to the PREVIOUS TRACING rate faster DOCTOR: Robert Leach Interpretating Date/Time 06/16/2016 20:12:59
== END 2016-06-15 18:30 | disposition home or self-care (01) ==
LOC: NEPE 16:10
DX: R07.9 Chest pain, unspecified (principal); F19.10 Other psychoactive substance abuse, uncomplicated; F17.210 Nicotine dependence, cigarettes, uncomplicated; F15.10 Other stimulant abuse, uncomplicated; R94.31 Abnormal electrocardiogram [ECG] [EKG]
CPT/HCPCS: 71010; 93005

== ENCOUNTER 2016-06-23 16:41 | Emergency (ER) | payer SELFPAY ==
[2016-06-23 16:59] VITALS: BP 149/89; PULSE 105; RESP 20; TEMP 98.6; O2SAT 99
[2016-06-23 17:17] LABS: AUTOMATED NEUTROPHIL # 6.3 TH/MM3 (1.8-7.7); BASOPHIL # 0.2 TH/MM3 (0-0.2); BASOPHIL % 2.7 % (0.0-2.0); EOSINOPHIL % 0.1 % (0.0-4.0); HEMATOCRIT 48.8 % (39.0-51.0); HEMO FLAGS DIFF FINAL; LYMPH % 19.4 % (9.0-44.0); LYMPHOCYTE # 1.7 TH/MM3 (1.0-4.8); MEAN CORPUSCULAR HEMOGLOBIN 31.6 PG (27.0-34.0); MEAN CORPUSCULAR HGB CONC 33.3 % (32.0-36.0); MONO % 6.3 % (0.0-8.0); NEUT % 71.5 % (16.0-70.0); PLATELET COUNT 256 TH/MM3 (150-450); RED BLOOD COUNT 5.14 MIL/MM3 (4.50-5.90); RED CELL DISTRIBUTION WIDTH 12.7 % (11.6-17.2); WHITE BLOOD COUNT 8.7 TH/MM3 (4.0-11.0)
[2016-06-23 17:24] LABS: CHLORIDE 102 MEQ/L (98-107); POTASSIUM 3.4 MEQ/L (3.5-5.1); SODIUM (NA) 139 MEQ/L (136-145)
--- NOTE | 2016-06-23 17:24 | RADHPO ---
EXAM DATE/TIME: 06/23/2016 17:17 [facility] COMPARISON: CHEST SINGLE AP, June 15, 2016, 17:14. INDICATIONS : Chest pain starting today MEDICAL HISTORY : None. SURGICAL HISTORY : None. ENCOUNTER: Initial ACUITY: 1 day PAIN SCORE: 10/10 LOCATION: Bilateral chest FINDINGS: A single view of the chest demonstrates the lungs to be symmetrically aerated without evidence of mas s, infiltrate or effusion. The cardiomediastinal contours are unremarkable. Osseous structures are intact. CONCLUSION: No acute cardiopulmonary process. Deshaun Massey MD on June 23, 2016 at 17:22 Board Certified Radiologist. This report was verified electronically.
[2016-06-23 17:28] LABS: ANION GAP 11 MEQ/L (5-15); BICARBONATE 26.3 MEQ/L (21.0-32.0)
--- NOTE | 2016-06-23 17:28 | PD ---
HPI Chief Complaint: Chest Pain Time Seen by Provider: 16:52 Travel History International Travel<30 days: No Contact w/Intl Traveler<30days: No Traveled to known affect area: No History of Present Illness HPI 31yo M with PMH of flakka abuse presents to the ED with c/o chest pain. This is the sixth visit in 2 months that pt has been here for flakka related chest pain. Pt states he smoked flakka 2 hours ago and started having burning sensation throughout his chest 1 hour ago. Denies significant sob. Denies any fever, fall, n/v, abdominal pain, focal weakness or numbness. PFSH Past Medical History Hx Anticoagulant Therapy: No Blood Disorders: No Heart Rhythm Problems: No Cancer: No Cardiac Catheterization: No Cardiovascular Problems: No High Cholesterol: No Chemotherapy: No Chest Pain: Yes Congestive Heart Failure: No Cerebrovascular Accident: No Diabetes: No Diminished Hearing: No Endocrine: No Gastrointestinal Disorders: No GERD: Yes Genitourinary: No Hiatal Hernia: Yes Hypertension: No Immune Disorder: No Implanted Vascular Access Dvce: No Musculoskeletal: No Neurologic: No Psychiatric: No Reproductive: No Respiratory: No Immunizations Current: No Thyroid Disease: No Ulcer: Yes Past Surgical History Abdominal Surgery: Yes (ABD HERNIA REPAIR) Coronary Artery Bypass Graft: No Other Surgery: Yes Social History Alcohol Use: Yes (1-2 beers a day) Tobacco Use: Yes (1ppd) Substance Use: Yes (flakka,ecstasy- FLAKKA USED 1.5 HRS AGO) Allergies-Medications (Allergen,Severity, Reaction): Coded Allergies: No Known Allergies (Verified , 06/23/16) Reported Meds & Prescriptions Reported Meds & Active Scripts Active No Active Prescriptions or Reported Medications Review of Systems Except as stated in HPI: all other systems reviewed are Neg Physical Exam Narrative GENERAL: 31yo M in mild distress. SKIN: Warm and dry. HEAD: Atraumatic. Normocephalic. EYES: Pupils equal and round at 4mm bilaterally. EOMI. ENT: No nasal bleeding or discharge. Mucous membranes pink and moist. NECK: Trachea midline. No JVD. No nuchal rigidity. CARDIOVASCULAR: Regular rate and rhythm. HR 80s. No murmur appreciated. RESPIRATORY: No accessory muscle use. Clear to auscultation. Breath sounds equal bilaterally. CHEST WALL: +TTP diffusely on chest wall. GASTROINTESTINAL: Abdomen soft, non-tender, nondistended. No rebound tenderness or guarding. MUSCULOSKELETAL: No obvious deformities. No clubbing. No cyanosis. No edema. NEUROLOGICAL: Awake and alert. No obvious cranial nerve deficits. Motor grossly within normal limits. Normal speech. PSYCHIATRIC: Appropriate mood and affect; insight and judgment normal. Data Data Last Documented VS Vital Signs Date Time Temp Pulse Resp B/P Pulse Ox O2 Delivery O2 Flow Rate FiO2 06/23/16 18:03 72 18 140/84 96 06/23/16 16:59 98.6 Orders Basic Metabolic Panel (Bmp) (06/23/16 16:57) Ckmb (Isoenzyme) Profile (06/23/16 16:57) Complete Blood Count With Diff (06/23/16 16:57) Troponin I (06/23/16 16:57) Chest, Single Ap (06/23/16 16:57) Electrocardiogram (06/23/16 ) Ibuprofen (Motrin) (06/23/16 17:30) CKMB (06/23/16 17:05) CKMB% (06/23/16 17:05) Electrocardiogram (06/23/16 ) Labs Laboratory Tests Test 06/23/16 17:05 White Blood Count 8.7 TH/MM3 Red Blood Count 5.14 MIL/MM3 Hemoglobin 16.3 GM/DL Hematocrit 48.8 % Mean Corpuscular Volume 95.0 FL Mean Corpuscular Hemoglobin 31.6 PG Mean Corpuscular Hemoglobin 33.3 % Concent Red Cell Distribution Width 12.7 % Platelet Count 256 TH/MM3 Mean Platelet Volume 7.8 FL Neutrophils (%) (Auto) 71.5 % Lymphocytes (%) (Auto) 19.4 % Monocytes (%) (Auto) 6.3 % Eosinophils (%) (Auto) 0.1 % Basophils (%) (Auto) 2.7 % Neutrophils # (Auto) 6.3 TH/MM3 Lymphocytes # (Auto) 1.7 TH/MM3 Monocytes # (Auto) 0.5 TH/MM3 Eosinophils # (Auto) 0.0 TH/MM3 Basophils # (Auto) 0.2 TH/MM3 CBC Comment DIFF FINAL Differential Comment Sodium Level 139 MEQ/L Potassium Level 3.4 MEQ/L Chloride Level 102 MEQ/L Carbon Dioxide Level 26.3 MEQ/L Anion Gap 11 MEQ/L Blood Urea Nitrogen 9 MG/DL Creatinine 1.10 MG/DL Estimat Glomerular Filtration 95 ML/MIN Rate Random Glucose 83 MG/DL Calcium Level 9.1 MG/DL Total Creatine Kinase 547 U/L Creatine Kinase MB 8.0 NG/ML Creatine Kinase MB % 1.5 % Troponin I LESS THAN 0.02 NG/ML [facility] Medical Decision Making Medical Screen Exam Complete: Yes Emergency Medical Condition: Yes Interpretation(s) First EKG had lead misplacement. Repeat EKG showed NSR 91bpm. Normal axis. No ST segment elevation or depression. Laboratory Tests Test 06/23/16 17:05 White Blood Count 8.7 TH/MM3 (4.0-11.0) Red Blood Count 5.14 MIL/MM3 (4.50-5.90) Hemoglobin 16.3 GM/DL (13.0-17.0) Hematocrit 48.8 % (39.0-51.0) Mean Corpuscular Volume 95.0 FL (80.0-100.0) Mean Corpuscular Hemoglobin 31.6 PG (27.0-34.0) Mean Corpuscular Hemoglobin 33.3 % Concent (32.0-36.0) Red Cell Distribution Width 12.7 % (11.6-17.2) Platelet Count 256 TH/MM3 (150-450) Mean Platelet Volume 7.8 FL (7.0-11.0) Neutrophils (%) (Auto) 71.5 % (16.0-70.0) Lymphocytes (%) (Auto) 19.4 % (9.0-44.0) Monocytes (%) (Auto) 6.3 % (0.0-8.0) Eosinophils (%) (Auto) 0.1 % (0.0-4.0) Basophils (%) (Auto) 2.7 % (0.0-2.0) Neutrophils # (Auto) 6.3 TH/MM3 (1.8-7.7) Lymphocytes # (Auto) 1.7 TH/MM3 (1.0-4.8) Monocytes # (Auto) 0.5 TH/MM3 (0-0.9) Eosinophils # (Auto) 0.0 TH/MM3 (0-0.4) Basophils # (Auto) 0.2 TH/MM3 (0-0.2) CBC Comment DIFF FINAL Differential Comment Sodium Level 139 MEQ/L (136-145) Potassium Level 3.4 MEQ/L (3.5-5.1) Chloride Level 102 MEQ/L (98-107) Carbon Dioxide Level 26.3 MEQ/L (21.0-32.0) Anion Gap 11 MEQ/L (5-15) Blood Urea Nitrogen 9 MG/DL (7-18) Creatinine 1.10 MG/DL (0.60-1.30) Estimat Glomerular Filtration 95 ML/MIN (>89) Rate Random Glucose 83 MG/DL (74-106) Calcium Level 9.1 MG/DL (8.5-10.1) Total Creatine Kinase 547 U/L (39-308) Creatine Kinase MB 8.0 NG/ML (0.5-3.6) Creatine Kinase MB % 1.5 % (0.0-4.0) Troponin I LESS THAN 0.02 NG/ML (0.02-0.05) Last Impressions Chest X-Ray 06/23/16 1657 Signed Impressions: Service Date/Time: Thursday, June 23, 2016 17:17 - CONCLUSION: No acute cardiopulmonary process. Deshaun Massey MD Differential Diagnosis Drug induced chest pain vs. musculoskeletal pain vs. atypical chest pain Narrative Course 31yo M with frequent visits for atypical chest pain after flakka use. Labs reviewed, no leukocytosis. Troponin negative. CPK mildly elevated but normal creatinine. K: 3.4, pt tolerating PO. Chest pain is very atypical. Pt given ibuprofen with improvement. Return precautions given. Diagnosis Primary Impression: Atypical chest pain Patient Instructions: General Instructions Departure Forms: Tests/Procedures Additional Instructions: Please follow up with your PMD in 3-7 days. Return to the ED if symptoms worsen. Med/Other Pt SpecificInfo: Prescription(s) given Scripts Ibuprofen 600 Mg Pdc087 Mg PO Q8HR PRN (PAIN) #20 TAB Ref 0 Prov:Idalia Erwin 06/23/16 Disposition: 01 DISCHARGE HOME Condition: Stable ErwinIdalia DO Jun 23, 2016 17:28
[2016-06-23 17:29] LABS: BLOOD UREA NITROGEN 9 MG/DL (7-18)
[2016-06-23] MEDS ORDERED: IBUPROFEN 600 MG TAB PO ONE (17:30)
[2016-06-23 17:32] LABS: GLOMERULAR FILTRATION RATE 95 ML/MIN (>89)
[2016-06-23 17:35] LABS: CREATINE KINASE 547 U/L (39-308)
[2016-06-23 18:03] VITALS: BP 140/84; PULSE 72; RESP 18; O2SAT 96
[2016-06-23] MEDS ORDERED: IBUP-232 PO (18:31)
--- NOTE | 2016-06-24 14:25 | EKG ---
Date Performed: 06/23/2016 Time Performed: 16:44:24 PTAGE: 31 years EKG: Sinus tachycardia Rightward axis Lateral infarct - age undetermined Compared to the previou s tracing sinus rate has decreased, possible old lateral infarct pattern is more prominent Abnormal E CG PREVIOUS TRACING : 06/15/2016 16.24 DOCTOR: Gordo Jerome Interpretating Date/Time 06/24/2016 14:23:39
--- NOTE | 2016-06-24 14:25 | EKG ---
Date Performed: 06/23/2016 Time Performed: 18:12:44 PTAGE: 31 years EKG: Sinus rhythm Compared to the previous tracing sinus rate has decreased, lateral infarct pattern is no longer pres ent Normal ECG PREVIOUS TRACING : 06/23/2016 16.44 DOCTOR: Gordo Jerome Interpretating Date/Time 06/24/2016 14:24:08
== END 2016-06-23 18:41 | disposition home or self-care (01) ==
LOC: PHED 16:41
DX: R07.89 Other chest pain (principal); F17.210 Nicotine dependence, cigarettes, uncomplicated; R00.0 Tachycardia, unspecified; K21.9 Gastro-esophageal reflux disease without esophagitis
CPT/HCPCS: 71010; 80048; 82550; 82552; 84484; 85025; 93005

== ENCOUNTER 2016-10-20 01:51 | Emergency (ER) | payer SELFPAY ==
[~2016-10-20] VITALS: Ht 182.9 cm; Wt 70.0 kg
[~2016-10-20 01:51] MED LIST: IBUP-232 PO
[2016-10-20 01:55] VITALS: BP 127/75; PULSE 103; RESP 18; TEMP 98.6; O2SAT 100
[2016-10-20 02:14] LABS: BASOPHIL # 0.1 TH/MM3 (0-0.2); BASOPHIL % 1.7 % (0.0-2.0); EOSINOPHIL % 0.4 % (0.0-4.0); HEMATOCRIT 48.2 % (39.0-51.0); HEMO FLAGS DIFF FINAL; LYMPH % 31.2 % (9.0-44.0); MEAN CELL VOLUME 95.4 FL (80.0-100.0); MEAN CORPUSCULAR HEMOGLOBIN 32.8 PG (27.0-34.0); MEAN CORPUSCULAR HGB CONC 34.4 % (32.0-36.0); MONO % 5.1 % (0.0-8.0); NEUT % 61.6 % (16.0-70.0); PLATELET COUNT 292 TH/MM3 (150-450); RED BLOOD COUNT 5.06 MIL/MM3 (4.50-5.90); RED CELL DISTRIBUTION WIDTH 13.7 % (11.6-17.2); WHITE BLOOD COUNT 6.5 TH/MM3 (4.0-11.0)
[2016-10-20 02:23] LABS: AMPHETAMINE, URINE POS (NEG); BARBITURATES, URINE NEG (NEG); COCAINE, URINE POS (NEG)
[2016-10-20 02:31] LABS: ALKALINE PHOSPHATASE 65 U/L (45-117); TOTAL BILIRUBIN ADULT 0.2 MG/DL (0.2-1.0)
[2016-10-20 02:35] LABS: ACETAMINOPHEN LESS THAN 2.0 MCG/ML (10.0-30.0); ALT (GPT) 22 U/L (12-78); ANION GAP 10 MEQ/L (5-15); AST (GOT) 22 U/L (15-37); BICARBONATE 28.5 MEQ/L (21.0-32.0); BLOOD UREA NITROGEN 13 MG/DL (7-18); CHLORIDE 105 MEQ/L (98-107); GLOMERULAR FILTRATION RATE 77 ML/MIN (>89); POTASSIUM 3.7 MEQ/L (3.5-5.1); SODIUM (NA) 143 MEQ/L (136-145)
--- NOTE | 2016-10-20 02:45 | PD ---
HPI Chief Complaint: OD/ Ingestion Time Seen by Provider: 02:38 Travel History International Travel<30 days: No Contact w/Intl Traveler<30days: No Traveled to known affect area: No History of Present Illness HPI This is a 31-year-old male who presents to the emergency department reporting chest discomfort, mild, constant, in the middle of this chest that started after he use walker earlier today. He has no other complaints. He's had this happen to him before multiple times and has been seen in the emergency department for it. PFSH Past Medical History Hx Anticoagulant Therapy: No Blood Disorders: No Heart Rhythm Problems: No Cancer: No Cardiac Catheterization: No Cardiovascular Problems: No High Cholesterol: No Chemotherapy: No Chest Pain: Yes Congestive Heart Failure: No Cerebrovascular Accident: No Diabetes: No Diminished Hearing: No Endocrine: No Gastrointestinal Disorders: No GERD: Yes Genitourinary: No Hiatal Hernia: Yes Hypertension: No Immune Disorder: No Implanted Vascular Access Dvce: No Musculoskeletal: No Neurologic: No Psychiatric: No Reproductive: No Respiratory: No Immunizations Current: No Thyroid Disease: No Ulcer: Yes Tetanus Vaccination: Unknown Influenza Vaccination: No Past Surgical History Abdominal Surgery: Yes (ABD HERNIA REPAIR) Coronary Artery Bypass Graft: No Other Surgery: Yes Social History Alcohol Use: Yes (1-2 beers a day) Tobacco Use: Yes (1ppd) Substance Use: Yes (flakka,ecstasy- FLAKKA USED 1.5 HRS AGO) Allergies-Medications (Allergen,Severity, Reaction): Coded Allergies: No Known Allergies (Verified , 10/20/16) Reported Meds & Prescriptions Reported Meds & Active Scripts Active No Active Prescriptions or Reported Medications Review of Systems Except as stated in HPI: all other systems reviewed are Neg Physical Exam Narrative GENERAL:Well appearing, no acute distress SKIN: Focused skin assessment warm and dry. HEAD: Atraumatic. Normocephalic. EYES: Pupils equal and round. No injection or drainage. ENT: Moist mucous membranes NECK: Trachea midline. CARDIOVASCULAR: Regular rate and rhythm. No murmur appreciated. RESPIRATORY: Clear to auscultation. Breath sounds equal bilaterally. GASTROINTESTINAL: Abdomen soft, non-tender, nondistended. MUSCULOSKELETAL: No obvious deformities. NEUROLOGICAL: Awake and alert. No obvious cranial nerve deficits. Moving all extremities. PSYCHIATRIC: Appropriate mood and affect; insight and judgment normal. Data Data Last Documented VS Vital Signs Date Time Temp Pulse Resp B/P Pulse Ox O2 Delivery O2 Flow Rate FiO2 10/20/16 01:57 16 10/20/16 01:55 98.6 103 127/75 100 Orders Complete Blood Count With Diff (10/20/16 02:00) Comprehensive Metabolic Panel (10/20/16 02:00) Drug Screen, Random Urine (10/20/16 02:00) Alcohol (Ethanol) (10/20/16 02:00) Salicylates (Aspirin) (10/20/16 02:00) Tylenol (Acetaminophen) (10/20/16 02:00) Troponin I (10/20/16 02:00) Electrocardiogram (10/20/16 ) Labs Laboratory Tests Test 10/20/16 02:00 White Blood Count 6.5 TH/MM3 Red Blood Count 5.06 MIL/MM3 Hemoglobin 16.6 GM/DL Hematocrit 48.2 % Mean Corpuscular Volume 95.4 FL Mean Corpuscular Hemoglobin 32.8 PG Mean Corpuscular Hemoglobin 34.4 % Concent Red Cell Distribution Width 13.7 % Platelet Count 292 TH/MM3 Mean Platelet Volume 7.4 FL Neutrophils (%) (Auto) 61.6 % Lymphocytes (%) (Auto) 31.2 % Monocytes (%) (Auto) 5.1 % Eosinophils (%) (Auto) 0.4 % Basophils (%) (Auto) 1.7 % Neutrophils # (Auto) 4.0 TH/MM3 Lymphocytes # (Auto) 2.0 TH/MM3 Monocytes # (Auto) 0.3 TH/MM3 Eosinophils # (Auto) 0.0 TH/MM3 Basophils # (Auto) 0.1 TH/MM3 CBC Comment DIFF FINAL Differential Comment Sodium Level 143 MEQ/L Potassium Level 3.7 MEQ/L Chloride Level 105 MEQ/L Carbon Dioxide Level 28.5 MEQ/L Anion Gap 10 MEQ/L Blood Urea Nitrogen 13 MG/DL Creatinine 1.32 MG/DL Estimat Glomerular Filtration 77 ML/MIN Rate Random Glucose 104 MG/DL Calcium Level 8.9 MG/DL Total Bilirubin 0.2 MG/DL Aspartate Amino Transf 22 U/L (AST/SGOT) Alanine Aminotransferase 22 U/L (ALT/SGPT) Alkaline Phosphatase 65 U/L Troponin I LESS THAN 0.02 NG/ML Total Protein 7.7 GM/DL Albumin 4.0 GM/DL Salicylates Level 1.9 MG/DL Urine Opiates Screen NEG Acetaminophen Level LESS THAN 2.0 MCG/ML Urine Barbiturates Screen NEG Urine Amphetamines Screen POS Urine Benzodiazepines Screen POS Urine Cocaine Screen POS Urine Cannabinoids Screen POS Ethyl Alcohol Level LESS THAN 3 MG/DL MDM Medical Decision Making Medical Screen Exam Complete: Yes Emergency Medical Condition: Yes Medical Record Reviewed: Yes (patient has been seen here in the ER multiple times this year for atypical chest pain) Interpretation(s) No leukocytosis Electrolytes are reassuring Troponin is normal Urine drug screen is positive for amphetamines, benzodiazepines, cocaine and cannabinoid Differential Diagnosis Cocaine chest pain, substance intoxication, aortic dissection, myocardial infarction Narrative Course This is a very well-appearing 31-year-old male who presents to the emergency department reporting chest pain after using Flakka. His EKG is nonischemic. Labs are reassuring with a normal troponin. His urine drug screen is positive for amphetamines, benzodiazepines, cocaine and cannabinoids. He looks very well. I don't think he requires any additional testing. Patient will be discharged home. Diagnosis Primary Impression: Polysubstance abuse Patient Instructions: General Instructions Additional Instructions: Follow up with Nirmal Jackson in regards to psychiatric or substance related issues at: [address] [place], [place] [id number] Med/Other Pt SpecificInfo: No Change to Meds Scripts No Active Prescriptions or Reported Meds Disposition: 01 DISCHARGE HOME Condition: Stable Cynthia Meraz MD Oct 20, 2016 02:45
--- NOTE | 2016-10-20 08:46 | EKG ---
Date Performed: 10/20/2016 Time Performed: 02:12:59 PTAGE: 31 years EKG: Sinus rhythm POSSIBLE RIGHT VENTRICULAR CONDUCTION DELAY BORDERLINE ECG PREVIOUS TRACING : 06/23/2016 18.12 DOCTOR: Anderson Lowery Interpretating Date/Time 10/20/2016 08:44:06
== END 2016-10-20 03:05 | disposition home or self-care (01) ==
LOC: NEPE 01:51
DX: R07.89 Other chest pain (principal); F19.10 Other psychoactive substance abuse, uncomplicated; F17.200 Nicotine dependence, unspecified, uncomplicated; K21.9 Gastro-esophageal reflux disease without esophagitis
CPT/HCPCS: 80053; 80307; 84484; 85025; 93005; 99284

== ENCOUNTER 2016-12-16 07:54 | Emergency (ER) | payer SELFPAY ==
[~2016-12-16] VITALS: Ht 185.4 cm; Wt 68.0 kg
[2016-12-16 07:57] VITALS: BP 121/81; PULSE 97; RESP 19; TEMP 99.4; O2SAT 98
[2016-12-16 08:15] VITALS: O2SAT 100
[2016-12-16] MEDS ORDERED: SODIUM CHLOR 0.9% 1000 ML INJ 1,000 ML IV ONE (08:15)
[2016-12-16] MEDS ORDERED: SODIUM CHLORIDE 0.9% FLUSH 10 ML FLUSH IVF PRN (08:15)
[2016-12-16] MEDS ORDERED: KETOROLAC TROMETHAMINE 30 MG/ML (IVP) VIAL IV PUSH ONE (08:45)
--- NOTE | 2016-12-16 09:05 | PD ---
HPI Chief Complaint: Chest Pain Time Seen by Provider: 08:05 Travel History International Travel<30 days: No Contact w/Intl Traveler<30days: No Traveled to known affect area: No History of Present Illness HPI 31 yo M c/o chest pain after smoking radha tonight. pt has had similar chest pain after smoking radha previously. location retrosternal and into the left upper quadrant. no dyspnea. associated symptoms include anxiety. severity moderate. PFSH Past Medical History Hx Anticoagulant Therapy: No Blood Disorders: No Heart Rhythm Problems: No Cancer: No Cardiac Catheterization: No Cardiovascular Problems: No High Cholesterol: No Chemotherapy: No Chest Pain: Yes Congestive Heart Failure: No Cerebrovascular Accident: No Diabetes: No Diminished Hearing: No Endocrine: No Gastrointestinal Disorders: No GERD: Yes Genitourinary: No Hiatal Hernia: Yes Hypertension: No Immune Disorder: No Implanted Vascular Access Dvce: No Musculoskeletal: No Neurologic: No Psychiatric: No Reproductive: No Respiratory: No Immunizations Current: No Thyroid Disease: No Ulcer: Yes Tetanus Vaccination: Unknown Influenza Vaccination: No Past Surgical History Abdominal Surgery: Yes (ABD HERNIA REPAIR) Coronary Artery Bypass Graft: No Other Surgery: Yes Social History Alcohol Use: Yes (1-2 beers a day) Tobacco Use: Yes (1ppd) Substance Use: Yes (FLAKKA USED 1 hour ago) Allergies-Medications (Allergen,Severity, Reaction): Coded Allergies: No Known Allergies (Verified , 12/16/16) Reported Meds & Prescriptions Reported Meds & Active Scripts Active No Active Prescriptions or Reported Medications Review of Systems Except as stated in HPI: all other systems reviewed are Neg General / Constitutional: No: Fever Cardiovascular: Positive: Chest Pain or Discomfort Respiratory: No: Shortness of Breath Psychiatric: Positive: Substance Abuse, No: Anxiety, Suicidal Ideations Physical Exam Narrative GENERAL: 31 yo M, WNWD, speaking full sentences SKIN: Warm and dry. HEAD: Atraumatic. Normocephalic. EYES: Pupils equal and round. No scleral icterus. No injection or drainage. ENT: No nasal bleeding or discharge. Mucous membranes pink and moist. NECK: Trachea midline. No JVD. CARDIOVASCULAR: HR approx 100; Regular. RESPIRATORY: No accessory muscle use. Clear to auscultation. Breath sounds equal bilaterally. GASTROINTESTINAL: Abdomen soft, non-tender, nondistended. Hepatic and splenic margins not palpable. MUSCULOSKELETAL: Extremities without clubbing, cyanosis, or edema. No obvious deformities. NEUROLOGICAL: Awake and alert. No obvious cranial nerve deficits. Motor grossly within normal limits. Five out of 5 muscle strength in the arms and legs. Normal speech. PSYCHIATRIC: Appropriate mood and affect; insight and judgment normal. Data Data Last Documented VS Vital Signs Date Time Temp Pulse Resp B/P (MAP) Pulse Ox O2 Delivery O2 Flow Rate FiO2 12/16/16 08:15 100 Room Air 12/16/16 08:06 96 20 12/16/16 07:57 99.4 121/81 (94) VS reviewed Orders Orders Electrocardiogram (12/16/16 08:10) Ecg Monitoring (12/16/16 08:10) Iv Access Insert/Monitor (12/16/16 08:10) Oximetry (12/16/16 08:10) Oxygen Administration (12/16/16 08:10) Sodium Chloride 0.9% Flush (Ns Flush) (12/16/16 08:15) Sodium Chlor 0.9% 1000 Ml Inj (Ns 1000 M (12/16/16 08:15) Ketorolac Inj (Toradol Inj) (12/16/16 08:45) MDM Medical Decision Making Medical Screen Exam Complete: Yes Emergency Medical Condition: Yes Medical Record Reviewed: Yes Differential Diagnosis NSTEMI, unstable angina, coronary vasospasm, PE, PTX, aortic dissection, pericarditis, myocarditis, endocarditis, PNA, esophageal disease, aneurysm, musculoskeletal etiologies, anxiety, cocaine/sympathomimetic abuse Narrative Course EKG reveals a sinus rhythm with a rate of 98 normal axis Patient has received IV fluids and Toradol. He has been seen here before for similar complaint and has more than 10 undetectable troponins. We discussed lifestyle modification and the patient was receptive. Diagnosis Primary Impression: Drug abuse Additional Impression: Chest pain Qualified Codes: R07.9 - Chest pain, unspecified Referrals: [facility] days Additional Instructions: PLEASE STOP USING DRUGS. Med/Other Pt SpecificInfo: No Change to Meds Scripts No Active Prescriptions or Reported Meds Disposition: 01 DISCHARGE HOME Condition: Stable Joshua Ziegler MD Dec 16, 2016 09:05
--- NOTE | 2016-12-16 17:18 | EKG ---
Date Performed: 12/16/2016 Time Performed: 08:02:25 PTAGE: 31 years EKG: Sinus rhythm POSSIBLE RIGHT VENTRICULAR CONDUCTION DELAY BORDERLINE ECG INTERPRETATION BASED ON A DEFAULT AGE OF 41 YEARS SINCE PREVIOUS TRACING , NO SIGNIFICANT CHANGE. PREVIOUS TRACIN10/20/2016 02.12 DOCTOR: Arsen Goff Interpretating Date/Time 12/16/2016 17:17:19
== END 2016-12-16 09:40 | disposition home or self-care (01) ==
LOC: NEPC 07:54
DX: F19.10 Other psychoactive substance abuse, uncomplicated (principal); R07.9 Chest pain, unspecified; F41.9 Anxiety disorder, unspecified; K21.9 Gastro-esophageal reflux disease without esophagitis; F17.200 Nicotine dependence, unspecified, uncomplicated
CPT/HCPCS: 93005; 96361; 96374; 99284; J1885; J7030

== ENCOUNTER 2017-01-21 14:18 | Emergency (ER) | payer SELFPAY ==
[~2017-01-21] VITALS: Ht 185.4 cm; Wt 75.0 kg
[2017-01-21 14:19] VITALS: BP 134/91; PULSE 128; RESP 18; TEMP 98.7; O2SAT 98
--- NOTE | 2017-01-21 15:13 | PD ---
HPI Chief Complaint: Chest Pain Time Seen by Provider: 15:05 Travel History International Travel<30 days: No Contact w/Intl Traveler<30days: No Traveled to known affect area: No History of Present Illness HPI 31-year-old male presents to the ED for evaluation of centralized 1010 chest pain. Onset approximately one hour ago while smoking Flakka. He endorses associated palpitations, shortness of breath, nausea and diaphoresis. On presentation he states that his symptoms have improved. He denies chronic health problems and takes no daily medications. He endorses smoking a pack of cigarettes a day. He endorses occasional alcohol and marijuana. Denies other illicit drugs. This is not the first time he smoked Flakka. He is unsure of any family history of cardiac disease. PFSH Past Medical History Hx Anticoagulant Therapy: No Blood Disorders: No Heart Rhythm Problems: No Cancer: No Cardiac Catheterization: No Cardiovascular Problems: No High Cholesterol: No Chemotherapy: No Chest Pain: Yes Congestive Heart Failure: No Cerebrovascular Accident: No Diabetes: No Diminished Hearing: No Endocrine: No Gastrointestinal Disorders: No GERD: Yes Genitourinary: No Hiatal Hernia: Yes Hypertension: No Immune Disorder: No Implanted Vascular Access Dvce: No Musculoskeletal: No Neurologic: No Psychiatric: No Reproductive: No Respiratory: No Immunizations Current: No Thyroid Disease: No Ulcer: Yes Past Surgical History Abdominal Surgery: Yes (ABD HERNIA REPAIR) Coronary Artery Bypass Graft: No Other Surgery: Yes (hernia repair) Social History Alcohol Use: No Tobacco Use: Yes (1ppd) Substance Use: Yes (FLAKKA USED 1 hour ago) Allergies-Medications (Allergen,Severity, Reaction): Coded Allergies: No Known Allergies (Verified , 01/21/17) Reported Meds & Prescriptions Reported Meds & Active Scripts Active No Active Prescriptions or Reported Medications Review of Systems Except as stated in HPI: all other systems reviewed are Neg Physical Exam Narrative GENERAL: Thin black male in no acute distress.. SKIN: Focused skin assessment warm/dry. HEAD: Normocephalic. EYES: No scleral icterus. No injection or drainage. NECK: Supple, trachea midline. No JVD or lymphadenopathy. CARDIOVASCULAR: Regular rate and rhythm without murmurs, gallops, or rubs. CHEST: Nontender throughout without deformity or crepitus. RESPIRATORY: Breath sounds clear and equal bilaterally. No accessory muscle use. GASTROINTESTINAL: Abdomen soft, non-tender, nondistended. Active bowel sounds. MUSCULOSKELETAL: No cyanosis, or edema. Observed walk with a normal gait. BACK: Nontender without obvious deformity. No CVA tenderness. Data Data Last Documented VS Vital Signs Date Time Temp Pulse Resp B/P (MAP) Pulse Ox O2 Delivery O2 Flow Rate FiO2 01/21/17 15:25 98.5 88 19 126/84 (98) 99 Room Air Orders Orders Electrocardiogram (01/21/17 ) Chest, Single Ap (01/21/17 ) Basic Metabolic Panel (Bmp) (01/21/17 15:06) Ckmb (Isoenzyme) Profile (01/21/17 15:06) Complete Blood Count With Diff (01/21/17 15:06) Magnesium (Mg) (01/21/17 15:06) Prothrombin Time / Inr (Pt) (01/21/17 15:06) Act Partial Throm Time (Ptt) (01/21/17 15:06) Troponin I (01/21/17 15:06) Ecg Monitoring (01/21/17 15:06) Bilateral Bp Monitoring (01/21/17 15:06) Iv Access Insert/Monitor (01/21/17 15:06) Oximetry (01/21/17 15:06) Sodium Chloride 0.9% Flush (Ns Flush) (01/21/17 15:15) Sodium Chlor 0.9% 1000 Ml Inj (Ns 1000 M (01/21/17 15:15) Drug Screen, Random Urine (01/21/17 15:06) Ed Discharge Order (01/21/17 16:36) Labs Laboratory Tests Test 01/21/17 15:23 01/21/17 16:07 White Blood Count 4.7 TH/MM3 Red Blood Count 4.64 MIL/MM3 Hemoglobin 14.8 GM/DL Hematocrit 43.9 % Mean Corpuscular Volume 94.6 FL Mean Corpuscular Hemoglobin 32.0 PG Mean Corpuscular Hemoglobin Concent 33.8 % Red Cell Distribution Width 13.7 % Platelet Count 250 TH/MM3 Mean Platelet Volume 7.5 FL Neutrophils (%) (Auto) 73.7 % Lymphocytes (%) (Auto) 21.2 % Monocytes (%) (Auto) 3.8 % Eosinophils (%) (Auto) 0.7 % Basophils (%) (Auto) 0.6 % Neutrophils # (Auto) 3.4 TH/MM3 Lymphocytes # (Auto) 1.0 TH/MM3 Monocytes # (Auto) 0.2 TH/MM3 Eosinophils # (Auto) 0.0 TH/MM3 Basophils # (Auto) 0.0 TH/MM3 CBC Comment DIFF FINAL Differential Comment Prothrombin Time 10.9 SEC Prothromb Time International Ratio 1.0 RATIO Activated Partial Thromboplast Time 30.2 SEC Blood Urea Nitrogen 12 MG/DL Creatinine 0.96 MG/DL Random Glucose 103 MG/DL Calcium Level 8.9 MG/DL Magnesium Level 1.8 MG/DL Sodium Level 140 MEQ/L Potassium Level 4.1 MEQ/L Chloride Level 106 MEQ/L Carbon Dioxide Level 30.4 MEQ/L Anion Gap 4 MEQ/L Estimat Glomerular Filtration Rate 111 ML/MIN Total Creatine Kinase 98 U/L Troponin I LESS THAN 0.02 NG/ML Urine Opiates Screen NEG Urine Barbiturates Screen NEG Urine Amphetamines Screen NEG Urine Benzodiazepines Screen NEG Urine Cocaine Screen NEG Urine Cannabinoids Screen POS MDM Medical Decision Making Medical Screen Exam Complete: Yes Emergency Medical Condition: Yes Differential Diagnosis Chest pain versus polysubstance abuse versus ACS versus other Narrative Course 31-year-old male presents to the ED for evaluation of centralized 10/10 chest pain. Onset approximately one hour ago while smoking Flakka. He endorses associated palpitations, shortness of breath, nausea and diaphoresis. On presentation he states that his symptoms have improved. Current cigarette smoker He endorses occasional alcohol and marijuana. Denies other illicit drugs. This is not the first time he smoked Flakka. He is unsure of any family history of cardiac disease. Patient is tachycardic and hypertensive in triage but this resolves in the exam room. Physical exam is unremarkable. IV was established. Patient was administered 1 L normal saline. EKG rate 89, sinus rhythm. GA interval 149, QRS 77, QTC 332 milliseconds. Normal axis. No ST changes. Reviewed by Dr. Noonan. CXR normal for patient of this age. Cardiac enzymes negative 1. No concerning abnormalities a CBC, CMP. Tox screen positive for cannabinoids. I discussed the results of the workup with the patient. He does not want to be admitted to the chest pain center. Review of the record reveals multiple visits to the ED with the same presentation. Please instructed to follow-up with the denture contour wire specialist and act on outpatient basis. He is stable and discharged home. Diagnosis Primary Impression: Drug abuse, amphetamine type Additional Impression: Chest pain in adult Referrals: [facility] (Out patient) Social Director Additional Instructions: Rest, hydrate. Return to normal, gentle activities as tolerated. Seek outpatient treatment for substance abuse. Follow-up with primary care provider and denture contour wire specialist. Return to the ED for any urgent or emergent medical condition. Scripts No Active Prescriptions or Reported Meds Disposition: 01 DISCHARGE HOME Condition: Stable Pham Chavis Jan 21, 2017 15:13
[2017-01-21] MEDS ORDERED: SODIUM CHLOR 0.9% 1000 ML INJ 1,000 ML IV ONE (15:15)
[2017-01-21] MEDS ORDERED: SODIUM CHLORIDE 0.9% FLUSH 10 ML FLUSH IVF PRN (15:15)
[2017-01-21 15:25] VITALS: BP 126/84; PULSE 88; RESP 19; TEMP 98.5; O2SAT 99
--- NOTE | 2017-01-21 15:28 | RADRPT ---
EXAM DATE/TIME: 01/21/2017 16:02 [facility] COMPARISON: CHEST SINGLE AP, June 23, 2016, 17:17. INDICATIONS : Chest pain. MEDICAL HISTORY : None. SURGICAL HISTORY : None. ENCOUNTER: Initial ACUITY: 1 day PAIN SCORE: 3/10 LOCATION: Bilateral chest FINDINGS: A single view of the chest demonstrates the lungs to be symmetrically aerated without evidence of mas s, infiltrate or effusion. The cardiomediastinal contours are unremarkable. Osseous structures are intact. CONCLUSION: Normal examination for a patient of this age. No significant change has occurred. Leon Savage MD on January 21, 2017 at 15:26 Board Certified Radiologist. This report was verified electronically.
[2017-01-21 15:34] LABS: AUTOMATED NEUTROPHIL # 3.4 TH/MM3 (1.8-7.7); BASOPHIL % 0.6 % (0.0-2.0); EOSINOPHIL % 0.7 % (0.0-4.0); HEMATOCRIT 43.9 % (39.0-51.0); HEMO FLAGS DIFF FINAL; LYMPH % 21.2 % (9.0-44.0); MEAN CELL VOLUME 94.6 FL (80.0-100.0); MEAN CORPUSCULAR HGB CONC 33.8 % (32.0-36.0); MONO % 3.8 % (0.0-8.0); NEUT % 73.7 % (16.0-70.0); PLATELET COUNT 250 TH/MM3 (150-450); RED BLOOD COUNT 4.64 MIL/MM3 (4.50-5.90); RED CELL DISTRIBUTION WIDTH 13.7 % (11.6-17.2); WHITE BLOOD COUNT 4.7 TH/MM3 (4.0-11.0)
[2017-01-21 15:48] LABS: APTT (PATIENT) 30.2 SEC (24.3-30.1); PROTHROMBIN TIME - PATIENT 10.9 SEC (9.8-11.6)
[2017-01-21 16:09] LABS: ANION GAP 4 MEQ/L (5-15); BICARBONATE 30.4 MEQ/L (21.0-32.0); BLOOD UREA NITROGEN 12 MG/DL (7-18); CHLORIDE 106 MEQ/L (98-107); GLOMERULAR FILTRATION RATE 111 ML/MIN (>89); MAGNESIUM 1.8 MG/DL (1.5-2.5); POTASSIUM 4.1 MEQ/L (3.5-5.1); SODIUM (NA) 140 MEQ/L (136-145)
[2017-01-21 16:19] LABS: CREATINE KINASE 98 U/L (39-308)
--- NOTE | 2017-01-22 17:26 | EKG ---
Date Performed: 01/21/2017 Time Performed: 14:37:10 PTAGE: 31 years EKG: Sinus rhythm BORDERLINE RIGHT AXIS DEVIATION SEPTAL MYOCARDIAL INFARCTION ABNORMAL ECG PREVIOUS TRACING : 12/16/2016 08.02 DOCTOR: Jason Funes Interpretating Date/Time 01/22/2017 17:24:24
== END 2017-01-21 16:47 | disposition home or self-care (01) ==
LOC: NEPD 14:18
DX: R07.9 Chest pain, unspecified (principal); R00.2 Palpitations; R06.02 Shortness of breath; F17.210 Nicotine dependence, cigarettes, uncomplicated; K21.9 Gastro-esophageal reflux disease without esophagitis; F15.10 Other stimulant abuse, uncomplicated
CPT/HCPCS: 71010; 80048; 80307; 82550; 83735; 84484; 85025; 85610; 85730; 93005; 96360; 99285; J7030

== ENCOUNTER 2017-01-22 02:49 | Emergency (ER) | payer SELFPAY ==
[~2017-01-22] VITALS: Ht 185.4 cm; Wt 75.0 kg
[2017-01-22 02:58] VITALS: BP 127/83; PULSE 99; RESP 22; TEMP 98.7; O2SAT 99
== END 2017-01-22 02:59 | disposition left against medical advice (07) ==
LOC: NED 02:49
DX: Z53.21 Procedure and treatment not carried out due to patient leaving prior to being seen by health care provider (principal)
CPT/HCPCS: 99281

== ENCOUNTER 2017-02-27 18:28 | Emergency (ER) | payer SELFPAY ==
[~2017-02-27] VITALS: Ht 185.4 cm; Wt 75.0 kg
[2017-02-27 18:30] VITALS: BP 135/95; PULSE 112; RESP 18; TEMP 97.4; O2SAT 100
--- NOTE | 2017-02-27 18:51 | PD ---
HPI Chief Complaint: Chest Pain Time Seen by Provider: 18:50 Travel History International Travel<30 days: No Contact w/Intl Traveler<30days: No Traveled to known affect area: No History of Present Illness HPI 32-year-old Afro-[place] male presents emergency department via POV reporting that he smoked flock of 20 minutes prior to arrival and now is complaining of chest pain. Patient denies headache, nausea, vomiting, or recent trauma. He denies shortness of breath. He denies allergies. No recent fever or illness. He has no known drug allergies. He claims his pain is 10 out of 10. PFSH Past Medical History Hx Anticoagulant Therapy: No Blood Disorders: No Heart Rhythm Problems: No Cancer: No Cardiac Catheterization: No Cardiovascular Problems: No High Cholesterol: No Chemotherapy: No Chest Pain: Yes Congestive Heart Failure: No Cerebrovascular Accident: No Diabetes: No Diminished Hearing: No Endocrine: No Gastrointestinal Disorders: No GERD: Yes Genitourinary: No Hiatal Hernia: Yes Hypertension: No Immune Disorder: No Implanted Vascular Access Dvce: No Musculoskeletal: No Neurologic: No Psychiatric: No Reproductive: No Respiratory: No Immunizations Current: No Thyroid Disease: No Ulcer: Yes Past Surgical History Abdominal Surgery: Yes (ABD HERNIA REPAIR) Coronary Artery Bypass Graft: No Other Surgery: Yes (hernia repair) Social History Alcohol Use: No Tobacco Use: Yes (1ppd) Substance Use: Yes (FLAKKA USED 1 hour ago) Allergies-Medications (Allergen,Severity, Reaction): Coded Allergies: No Known Allergies (Verified , 01/22/17) Reported Meds & Prescriptions Reported Meds & Active Scripts Active No Active Prescriptions or Reported Medications Review of Systems ROS Limitations: Intoxication Except as stated in HPI: all other systems reviewed are Neg General / Constitutional: No: Fever Eyes: No: Visual changes HENT: No: Headaches Cardiovascular: No: Chest Pain or Discomfort Respiratory: No: Shortness of Breath Gastrointestinal: No: Abdominal Pain Genitourinary: No: Dysuria Musculoskeletal: No: Pain Skin: No Rash Neurologic: No: Weakness Psychiatric: No: Depression Endocrine: No: Polydipsia Hematologic/Lymphatic: No: Easy Bruising Physical Exam Narrative GENERAL: Patient is asleep upon entering the room but arousable. SKIN: Warm and dry. Normal color. Normal turgor. Signs of trauma. HEAD: Atraumatic. Normocephalic. EYES: Pupils equal and round. No scleral icterus. No injection or drainage. ENT: No nasal bleeding or discharge. Mucous membranes pink and moist. Pharynx is clear. Airway is patent. NECK: Trachea midline. Supple and nontender. CARDIOVASCULAR: Regular rate and rhythm. No murmurs gallops or rubs RESPIRATORY: No accessory muscle use. Clear to auscultation. Breath sounds equal bilaterally. Patient has tenderness with palpation to the left anterior chest wall. GASTROINTESTINAL: Abdomen soft, non-tender, nondistended. Hepatic and splenic margins not palpable. MUSCULOSKELETAL: Extremities without clubbing, cyanosis, or edema. No obvious deformities. NEUROLOGICAL: Awake and alert. No obvious cranial nerve deficits. Motor grossly within normal limits. Five out of 5 muscle strength in the arms and legs. Normal speech. Data Data Last Documented VS Vital Signs Date Time Temp Pulse Resp B/P (MAP) Pulse Ox O2 Delivery O2 Flow Rate FiO2 02/27/17 18:30 97.4 112 18 135/95 (108) 100 Orders Orders Electrocardiogram (02/27/17 18:53) Ckmb (Isoenzyme) Profile (02/27/17 18:53) Complete Blood Count With Diff (02/27/17 18:53) Comprehensive Metabolic Panel (02/27/17 18:53) Magnesium (Mg) (02/27/17 18:53) Prothrombin Time / Inr (Pt) (02/27/17 18:53) Act Partial Throm Time (Ptt) (02/27/17 18:53) Troponin I (02/27/17 18:53) Chest, Single Ap (02/27/17 18:53) Ecg Monitoring (02/27/17 18:53) Bilateral Bp Monitoring (02/27/17 18:53) Iv Access Insert/Monitor (02/27/17 18:53) Oximetry (02/27/17 18:53) Oxygen Administration (02/27/17 18:53) Sodium Chloride 0.9% Flush (Ns Flush) (02/27/17 19:00) Sodium Chlorid 0.9% 500 Ml Inj (Ns 500 M (02/27/17 19:00) Drug Screen, Random Urine (02/27/17 18:53) Aspirin Chew (Aspirin Chew) (02/27/17 19:00) CKMB (02/27/17 19:25) CKMB% (02/27/17 19:25) Ketorolac Inj (Toradol Inj) (02/27/17 21:00) Labs Laboratory Tests Test 02/27/17 19:25 02/27/17 20:00 White Blood Count 5.6 TH/MM3 Red Blood Count 4.73 MIL/MM3 Hemoglobin 15.2 GM/DL Hematocrit 45.0 % Mean Corpuscular Volume 95.1 FL Mean Corpuscular Hemoglobin 32.1 PG Mean Corpuscular Hemoglobin Concent 33.7 % Red Cell Distribution Width 13.9 % Platelet Count 298 TH/MM3 Mean Platelet Volume 8.0 FL Neutrophils (%) (Auto) 49.3 % Lymphocytes (%) (Auto) 41.7 % Monocytes (%) (Auto) 6.8 % Eosinophils (%) (Auto) 1.4 % Basophils (%) (Auto) 0.8 % Neutrophils # (Auto) 2.8 TH/MM3 Lymphocytes # (Auto) 2.4 TH/MM3 Monocytes # (Auto) 0.4 TH/MM3 Eosinophils # (Auto) 0.1 TH/MM3 Basophils # (Auto) 0.0 TH/MM3 CBC Comment DIFF FINAL Differential Comment Prothrombin Time 10.6 SEC Prothromb Time International Ratio 1.0 RATIO Activated Partial Thromboplast Time 27.8 SEC Blood Urea Nitrogen 9 MG/DL Creatinine 1.14 MG/DL Random Glucose 82 MG/DL Total Protein 7.4 GM/DL Albumin 3.8 GM/DL Calcium Level 8.8 MG/DL Magnesium Level 1.6 MG/DL Alkaline Phosphatase 70 U/L Aspartate Amino Transf (AST/SGOT) 16 U/L Alanine Aminotransferase (ALT/SGPT) 22 U/L Total Bilirubin 0.2 MG/DL Sodium Level 144 MEQ/L Potassium Level 4.2 MEQ/L Chloride Level 110 MEQ/L Carbon Dioxide Level 27.1 MEQ/L Anion Gap 7 MEQ/L Estimat Glomerular Filtration Rate 91 ML/MIN Total Creatine Kinase 202 U/L Creatine Kinase MB 1.9 NG/ML Troponin I LESS THAN 0.02 NG/ML Urine Opiates Screen NEG Urine Barbiturates Screen NEG Urine Amphetamines Screen NEG Urine Benzodiazepines Screen NEG Urine Cocaine Screen NEG Urine Cannabinoids Screen POS MDM Medical Decision Making Medical Screen Exam Complete: Yes Emergency Medical Condition: Yes Differential Diagnosis Atypical chest pain. Cardiac syndrome. Illicit drug use. Narrative Course Labs ordered including CBC, CMP, cardiac panel, urine drug screen EKG shows possible septal myocardial infarction of indeterminate age. Otherwise sinus rhythm. This was reviewed with Dr. Suarez. Chest x-ray is ordered. Patient is given 500 mL of normal saline bolus. Patient is given 324 mg aspirin by mouth. Chest x-ray is negative for acute process per radiology. CBC is unremarkable. Coagulation studies are normal. CMP shows no significant findings. Troponin is less than 0.02 Urine drug screen positive for marijuana. Patient is given Toradol 30 mg IV. Patient is felt stable for discharge home after discussion with Dr. Suarez. Patient take [id number] pain meds as needed. Patient should stop using illicit substances. Diagnosis Primary Impression: Nonspecific chest pain Referrals: [facility] Patient Instructions: Chest Wall Pain (ED), General Instructions Additional Instructions: Patient is felt stable for discharge home after discussion with Dr. Suarez. Patient take [id number] pain meds as needed. Patient should stop using illicit substances. Med/Other Pt SpecificInfo: No Meds Exist/No RX given Scripts No Active Prescriptions or Reported Meds Disposition: 01 DISCHARGE HOME Condition: Stable Jam King Feb 27, 2017 18:51
[2017-02-27] MEDS ORDERED: SODIUM CHLORID 0.9% 500 ML INJ 500 ML IV ONE (19:00)
[2017-02-27] MEDS ORDERED: ASPIRIN 81 MG CHEW TAB CHEW ONE (19:00)
[2017-02-27] MEDS ORDERED: SODIUM CHLORIDE 0.9% FLUSH 10 ML FLUSH IVF PRN (19:00)
--- NOTE | 2017-02-27 19:20 | RADRPT ---
EXAM DATE/TIME: 02/27/2017 19:03 [facility] COMPARISON: CHEST SINGLE AP, January 21, 2017, 16:02. INDICATIONS : Chest pain MEDICAL HISTORY : None. SURGICAL HISTORY : None. ENCOUNTER: Initial ACUITY: 1 day PAIN SCORE: 6/10 LOCATION: chest FINDINGS: A single view of the chest demonstrates the lungs to be symmetrically aerated without evidence of mas s, infiltrate or effusion. The cardiomediastinal contours are unremarkable. Osseous structures are intact. CONCLUSION: No acute disease. Collins De La Torre MD on February 27, 2017 at 19:18 Board Certified Radiologist. This report was verified electronically.
[2017-02-27 20:18] LABS: AUTOMATED NEUTROPHIL # 2.8 TH/MM3 (1.8-7.7); BASOPHIL % 0.8 % (0.0-2.0); EOSINOPHIL # 0.1 TH/MM3 (0-0.4); EOSINOPHIL % 1.4 % (0.0-4.0); HEMO FLAGS DIFF FINAL; LYMPH % 41.7 % (9.0-44.0); LYMPHOCYTE # 2.4 TH/MM3 (1.0-4.8); MEAN CELL VOLUME 95.1 FL (80.0-100.0); MEAN CORPUSCULAR HEMOGLOBIN 32.1 PG (27.0-34.0); MEAN CORPUSCULAR HGB CONC 33.7 % (32.0-36.0); MONO % 6.8 % (0.0-8.0); NEUT % 49.3 % (16.0-70.0); PLATELET COUNT 298 TH/MM3 (150-450); RED BLOOD COUNT 4.73 MIL/MM3 (4.50-5.90); RED CELL DISTRIBUTION WIDTH 13.9 % (11.6-17.2); WHITE BLOOD COUNT 5.6 TH/MM3 (4.0-11.0)
[2017-02-27 20:28] LABS: APTT (PATIENT) 27.8 SEC (24.3-30.1); PROTHROMBIN TIME - PATIENT 10.6 SEC (9.8-11.6)
[2017-02-27 20:29] LABS: ALT (GPT) 22 U/L (12-78); ANION GAP 7 MEQ/L (5-15); BICARBONATE 27.1 MEQ/L (21.0-32.0); BLOOD UREA NITROGEN 9 MG/DL (7-18); CHLORIDE 110 MEQ/L (98-107); GLOMERULAR FILTRATION RATE 91 ML/MIN (>89); MAGNESIUM 1.6 MG/DL (1.5-2.5); POTASSIUM 4.2 MEQ/L (3.5-5.1); SODIUM (NA) 144 MEQ/L (136-145)
[2017-02-27 20:33] LABS: ALKALINE PHOSPHATASE 70 U/L (45-117); AST (GOT) 16 U/L (15-37); CREATINE KINASE 202 U/L (39-308); TOTAL BILIRUBIN ADULT 0.2 MG/DL (0.2-1.0)
[2017-02-27 20:45] LABS: CKMB 1.9 NG/ML (0.5-3.6)
[2017-02-27] MEDS ORDERED: KETOROLAC TROMETHAMINE 30 MG/ML (IVP) VIAL IV PUSH ONE (21:00)
--- NOTE | 2017-02-28 07:06 | EKG ---
Date Performed: 02/27/2017 Time Performed: 18:55:17 PTAGE: 32 years EKG: Sinus rhythm POSSIBLE RIGHT VENTRICULAR CONDUCTION DELAY SEPTAL MYOCARDIAL INFARCTION ABNORMAL ECG PREVIOUS TRACING : 01/21/2017 14.37 No significant change from previous tracing noted. DOCTOR: Sky Joyce Interpretating Date/Time 02/28/2017 07:05:00
== END 2017-02-27 21:35 | disposition home or self-care (01) ==
LOC: NEPC 18:28
DX: R07.9 Chest pain, unspecified (principal); R94.31 Abnormal electrocardiogram [ECG] [EKG]; F17.200 Nicotine dependence, unspecified, uncomplicated
CPT/HCPCS: 71010; 80053; 80307; 82550; 82552; 83735; 84484; 85025; 85610; 85730; 93005; 96361; 96374; 99285; J1885; J7040

== ENCOUNTER 2017-03-21 20:10 | Emergency (ER) | payer SELFPAY ==
[~2017-03-21] VITALS: Ht 185.4 cm; Wt 75.0 kg
[2017-03-21 20:14] VITALS: BP 147/97; PULSE 128; RESP 16; TEMP 98.4; O2SAT 98
--- NOTE | 2017-03-21 21:28 | RADRPT ---
EXAM DATE/TIME: 03/21/2017 20:34 [facility] COMPARISON: CHEST SINGLE AP, February 27, 2017, 19:03. CHEST PA & LAT, June 02, 2016, 21:48. INDICATIONS : Chest pain. MEDICAL HISTORY : None. SURGICAL HISTORY : None. ENCOUNTER: Initial ACUITY: 1 day PAIN SCORE: 10/10 LOCATION: Left chest FINDINGS: PA and lateral views of the chest demonstrate the lungs to be symmetrically aerated without evidence of mass, infiltrate or effusion. The cardiomediastinal contours are unremarkable. Osseous structure s are intact. CONCLUSION: No acute cardiopulmonary disease. Saturnino Bryson MD on March 21, 2017 at 21:26 Board Certified Radiologist. This report was verified electronically.
--- NOTE | 2017-03-26 11:23 | PD ---
Physical Exam Date Seen by Provider: Mar 26, 2017 Time Seen by Provider: 11:12 Narrative 32-year-old male presents to the emergency department for evaluation of left- sided chest pain that started about 30 minutes ago. Chest pain started after using Flakka. Patient has been seen multiple times according to chart for atypical chest pain. He states the pain is sharp and burning. He reports associated shortness of breath. Data Data Orders Orders Chest, Pa & Lat (03/21/17 ) [facility] Medical Record Reviewed: Yes Supervised Visit with CHIRAG: No Narrative Course 32-year-old male presents to the emergency department for evaluation of chest pain that started after using Flakka. Patient is initially seen in triage. EKG , CBC, BMP, CK, troponin, magnesium, chest x-ray are ordered and pending in triage. Patient will be transferred to medical bed once a bed is available. Further evaluation and disposition will be done at this time. Patient left AGAINST MEDICAL ADVICE before workup or further evaluation could be completed. Diagnosis Primary Impression: Left against medical advice Additional Impression: Polysubstance abuse Scripts No Active Prescriptions or Reported Meds Disposition: 07 AGAINST MEDICAL ADVICE Mariangel Haynes Mar 26, 2017 11:23
== END 2017-03-21 22:50 | disposition left against medical advice (07) ==
LOC: NED 20:10
DX: F19.10 Other psychoactive substance abuse, uncomplicated (principal)
CPT/HCPCS: 71020; 99281

== ENCOUNTER 2017-08-06 08:47 | Emergency (ER) | payer SELFPAY ==
[~2017-08-06] VITALS: Ht 185.4 cm; Wt 75.0 kg
[2017-08-06 08:48] VITALS: BP 137/83; PULSE 98; RESP 16; TEMP 98.5; O2SAT 98
[2017-08-06] MEDS ORDERED: BUTA1TAB30 PO (09:12)
[2017-08-06] MEDS ORDERED: IBUPROFEN 600 MG TAB PO ONE (09:15)
[2017-08-06] MEDS ORDERED: PROMETHAZINE HCL 25 MG TAB PO ONE (09:15)
--- NOTE | 2017-08-06 09:15 | PD ---
HPI Chief Complaint: Headache Time Seen by Provider: 09:06 Travel History International Travel<30 days: No Contact w/Intl Traveler<30days: No Traveled to known affect area: No History of Present Illness HPI 32-year-old male arrives generalized headache for 1 day. Onset gradual. Timing constant. Severity moderate. No neck stiffness. No fever. No nausea vomiting. No photophobia. Patient denies history of migraines. He wonders if it could be stress related because he has had significant personal stress lately. PFSH Past Medical History Hx Anticoagulant Therapy: No Blood Disorders: No Heart Rhythm Problems: No Cancer: No Cardiac Catheterization: No Cardiovascular Problems: No High Cholesterol: No Chemotherapy: No Chest Pain: Yes Congestive Heart Failure: No Cerebrovascular Accident: No Diabetes: No Diminished Hearing: No Endocrine: No Gastrointestinal Disorders: No GERD: Yes Genitourinary: No Hiatal Hernia: Yes Hypertension: No Immune Disorder: No Implanted Vascular Access Dvce: No Musculoskeletal: No Neurologic: No Psychiatric: No Reproductive: No Respiratory: No Immunizations Current: No Thyroid Disease: No Ulcer: Yes Past Surgical History Abdominal Surgery: Yes (ABD HERNIA REPAIR) Coronary Artery Bypass Graft: No Other Surgery: Yes (hernia repair) Social History Alcohol Use: No Tobacco Use: Yes (1ppd) Substance Use: Yes (FLAKKA USED 1 hour ago) Allergies-Medications (Allergen,Severity, Reaction): Coded Allergies: No Known Allergies (Verified , 01/22/17) Reported Meds & Prescriptions Reported Meds & Active Scripts Active No Active Prescriptions or Reported Medications Review of Systems Except as stated in HPI: all other systems reviewed are Neg General / Constitutional: No: Fever Physical Exam Narrative GENERAL: 32-year-old male well-nourished well-developed no acute distress Vital Signs Date Time Temp Pulse Resp B/P (MAP) Pulse Ox O2 Delivery O2 Flow Rate FiO2 08/06/17 08:48 98.5 98 16 137/83 (101) 98 SKIN: Warm and dry. HEAD: Atraumatic. Normocephalic. EYES: Pupils equal and round. No scleral icterus. No injection or drainage. ENT: No nasal bleeding or discharge. Mucous membranes pink and moist. NECK: Trachea midline. No JVD. Normal range of motion without rigidity. CARDIOVASCULAR: Regular rate and rhythm. RESPIRATORY: No accessory muscle use. Clear to auscultation. Breath sounds equal bilaterally. GASTROINTESTINAL: Abdomen soft, non-tender, nondistended. Hepatic and splenic margins not palpable. MUSCULOSKELETAL: Extremities without clubbing, cyanosis, or edema. No obvious deformities. NEUROLOGICAL: Awake and alert. No obvious cranial nerve deficits. Motor grossly within normal limits. Five out of 5 muscle strength in the arms and legs. Normal speech. PSYCHIATRIC: Appropriate mood and affect; insight and judgment normal. Data Data Last Documented VS Vital Signs Date Time Temp Pulse Resp B/P (MAP) Pulse Ox O2 Delivery O2 Flow Rate FiO2 08/06/17 08:48 98.5 98 16 137/83 (101) 98 MDM Medical Decision Making Medical Screen Exam Complete: Yes Emergency Medical Condition: Yes Medical Record Reviewed: Yes Differential Diagnosis Migraine, subarachnoid hemorrhage, mass, meningitis, tension headache Narrative Course Patient is well-appearing. He is a normal range of motion of the neck and I doubt there is an intracranial mass or meningeal process. Bleed is also considered reasonably safely excludable. Scripts as below. Diagnosis Primary Impression: Headache Qualified Codes: R51 - Headache Referrals: [facility] call for appointment Med/Other Pt SpecificInfo: Prescription(s) given Scripts Butalbital-Acetaminophen (Butalbital-Acetaminophen) 50-325 Mg Tab 1-2 TAB PO Q4HR Y for HEADACHE, #20 TAB 0 Refills Do not exceed 6 tablets per day. Prov: Joshua Ziegler MD 08/06/17 Disposition: 01 DISCHARGE HOME Condition: Stable Joshua Ziegler MD August 06, 2017 09:15
== END 2017-08-06 10:18 | disposition home or self-care (01) ==
LOC: NEPD 08:47
DX: R51 Headache (principal); K21.9 Gastro-esophageal reflux disease without esophagitis; F17.200 Nicotine dependence, unspecified, uncomplicated
CPT/HCPCS: 99283; Q0169

== ENCOUNTER 2017-08-31 09:22 | Emergency (ER) | payer SELFPAY ==
[~2017-08-31 09:22] MED LIST changes: +BUTA1TAB30 PO; -IBUP-232 PO
[2017-08-31 09:42] VITALS: BP 140/81; PULSE 110; RESP 18; TEMP 98.8; O2SAT 99
[2017-08-31 09:53] VITALS: PULSE 108; RESP 16; O2SAT 98
--- NOTE | 2017-08-31 10:01 | PD ---
HPI Chief Complaint: Chest Pain Time Seen by Provider: 09:56 Travel History International Travel<30 days: No Contact w/Intl Traveler<30days: No Traveled to known affect area: No History of Present Illness HPI Patient comes in complaining of sharp chest pain, nonradiating, rated 5 out of 10, no alleviating or aggravating factors. Patient denies any associated factors such as fever, cough, rash, sore throat, runny nose, nausea, vomiting, diarrhea, flank pain, abdominal pain, hematuria/dysuria/urgency/frequency. No known drug allergy Past medical history significant for ulcer, GERD, hiatal hernia, smokes 1 pack a day of tobacco, PFSH Past Medical History Hx Anticoagulant Therapy: No Blood Disorders: No Heart Rhythm Problems: No Cancer: No Cardiac Catheterization: No Cardiovascular Problems: No High Cholesterol: No Chemotherapy: No Chest Pain: Yes Congestive Heart Failure: No Cerebrovascular Accident: No Diabetes: No Diminished Hearing: No Endocrine: No Gastrointestinal Disorders: No GERD: Yes Genitourinary: No Hiatal Hernia: Yes Hypertension: No Immune Disorder: No Implanted Vascular Access Dvce: No Musculoskeletal: No Neurologic: No Psychiatric: No Reproductive: No Respiratory: No Immunizations Current: No Thyroid Disease: No Ulcer: Yes Past Surgical History Abdominal Surgery: Yes (HERNIA) Coronary Artery Bypass Graft: No Other Surgery: Yes (hernia repair) Social History Alcohol Use: Yes Tobacco Use: Yes (1ppd) Substance Use: Yes Allergies-Medications (Allergen,Severity, Reaction): Coded Allergies: No Known Allergies (Verified Adverse Reaction, Unknown, 08/31/17) Reported Meds & Prescriptions Reported Meds & Active Scripts Active No Active Prescriptions or Reported Medications Review of Systems General / Constitutional: No: Fever Eyes: No: Visual changes HENT: No: Headaches Cardiovascular: Positive: Chest Pain or Discomfort Respiratory: No: Shortness of Breath Gastrointestinal: No: Abdominal Pain Genitourinary: No: Dysuria Musculoskeletal: No: Pain Skin: No Rash Neurologic: No: Weakness Psychiatric: No: Depression Endocrine: No: Polydipsia Hematologic/Lymphatic: No: Easy Bruising Physical Exam Narrative GENERAL: SKIN: Warm and dry. HEAD: Atraumatic. Normocephalic. EYES: Pupils equal and round. No scleral icterus. No injection or drainage. ENT: No nasal bleeding or discharge. Mucous membranes pink and moist. NECK: Trachea midline. No JVD. CARDIOVASCULAR: Regular rate and rhythm. RESPIRATORY: No accessory muscle use. Clear to auscultation. Breath sounds equal bilaterally. GASTROINTESTINAL: Abdomen soft, non-tender, nondistended. MUSCULOSKELETAL: Extremities without clubbing, cyanosis, or edema. No obvious deformities. NEUROLOGICAL: Awake and alert. No obvious cranial nerve deficits. Motor grossly within normal limits. Five out of 5 muscle strength in the arms and legs. Normal speech. PSYCHIATRIC: Appropriate mood and affect; insight and judgment normal. Data Data Last Documented VS Vital Signs Date Time Temp Pulse Resp B/P (MAP) Pulse Ox O2 Delivery O2 Flow Rate FiO2 08/31/17 10:09 112 136/86 (103) 08/31/17 09:53 16 98 Room Air 08/31/17 09:42 98.8 Orders Orders Complete Blood Count With Diff (08/31/17 10:01) Comprehensive Metabolic Panel (08/31/17 10:01) Creatine Kinase (Cpk) (08/31/17 10:01) Troponin I (08/31/17 10:01) B-Type Natriuretic Peptide (08/31/17 10:01) Lipase (08/31/17 10:01) Urinalysis - C+S If Indicated (08/31/17 10:01) D-Dimer (08/31/17 10:01) Chest, Single Ap (08/31/17 10:01) Iv Access Insert/Monitor (08/31/17 10:01) Ecg Monitoring (08/31/17 10:01) Oximetry (08/31/17 10:01) Drug Screen, Random Urine (08/31/17 10:01) Alcohol (Ethanol) (08/31/17 10:01) Salicylates (Aspirin) (08/31/17 10:01) Tylenol (Acetaminophen) (08/31/17 10:01) Ckmb (Isoenzyme) Profile (08/31/17 13:00) Troponin I (08/31/17 13:00) Electrocardiogram (08/31/17 09:51) Ondansetron Odt (Zofran Odt) (08/31/17 12:30) CKMB (08/31/17 12:55) CKMB% (08/31/17 12:55) Labs Laboratory Tests Test 08/31/17 10:04 08/31/17 11:30 08/31/17 12:55 White Blood Count 10.7 TH/MM3 Red Blood Count 5.08 MIL/MM3 Hemoglobin 16.4 GM/DL Hematocrit 47.7 % Mean Corpuscular Volume 93.9 FL Mean Corpuscular Hemoglobin 32.3 PG Mean Corpuscular Hemoglobin Concent 34.4 % Red Cell Distribution Width 14.1 % Platelet Count 255 TH/MM3 Mean Platelet Volume 7.6 FL Neutrophils (%) (Auto) 75.2 % Lymphocytes (%) (Auto) 13.5 % Monocytes (%) (Auto) 10.3 % Eosinophils (%) (Auto) 0.3 % Basophils (%) (Auto) 0.7 % Neutrophils # (Auto) 8.1 TH/MM3 Lymphocytes # (Auto) 1.4 TH/MM3 Monocytes # (Auto) 1.1 TH/MM3 Eosinophils # (Auto) 0.0 TH/MM3 Basophils # (Auto) 0.1 TH/MM3 CBC Comment DIFF FINAL Differential Comment D-Dimer Quantitative (PE/DVT) LESS THAN 0.19 MG/L FEU Blood Urea Nitrogen 8 MG/DL Creatinine 0.99 MG/DL Random Glucose 75 MG/DL Total Protein 8.5 GM/DL Albumin 4.2 GM/DL Calcium Level 9.4 MG/DL Alkaline Phosphatase 86 U/L Aspartate Amino Transf (AST/SGOT) 21 U/L Alanine Aminotransferase (ALT/SGPT) 19 U/L Total Bilirubin 0.4 MG/DL Sodium Level 137 MEQ/L Potassium Level 3.8 MEQ/L Chloride Level 103 MEQ/L Carbon Dioxide Level 22.9 MEQ/L Anion Gap 11 MEQ/L Estimat Glomerular Filtration Rate 107 ML/MIN Total Creatine Kinase 197 U/L 185 U/L Troponin I LESS THAN 0.02 NG/ML LESS THAN 0.02 NG/ML B-Type Natriuretic Peptide 2 PG/ML Lipase 62 U/L Salicylates Level 2.5 MG/DL Acetaminophen Level LESS THAN 2.0 MCG/ML Ethyl Alcohol Level LESS THAN 3 MG/DL Urine Color YELLOW Urine Turbidity CLEAR Urine pH 6.0 Urine Specific [place] 1.013 Urine Protein NEG mg/dL Urine Glucose (UA) NEG mg/dL Urine Ketones 10 mg/dL Urine Occult Blood NEG Urine Nitrite NEG Urine Bilirubin NEG Urine Urobilinogen LESS THAN 2.0 MG/DL Urine Leukocyte Esterase NEG Urine RBC 1 /hpf Urine WBC LESS THAN 1 /hpf Microscopic Urinalysis Comment CULT NOT INDICATED Urine Opiates Screen NEG Urine Barbiturates Screen NEG Urine Amphetamines Screen POS Urine Benzodiazepines Screen NEG Urine Cocaine Screen NEG Urine Cannabinoids Screen NEG Creatine Kinase MB 1.0 NG/ML MDM Medical Decision Making Medical Screen Exam Complete: Yes Emergency Medical Condition: Yes Medical Record Reviewed: Yes Interpretation(s) Pulse ox: Excellent Pleth wave, pulse oximetry reads 98-100 on room air which is within normal limits and without any evidence of hypoxemia EKG shows sinus tachycardia 109 bpm, P mitral alley noted, nonspecific ST-T wave changes noted Differential Diagnosis Pneumonia versus pneumothorax versus pleural effusion versus chest wall pain versus rhabdo versus STEMI Narrative Course CBC shows no leukocytosis, no anemia, normal platelet count, no left shift Negative d-dimer UA is negative for UTI tox screen only positive for amphetamines Electrolytes are all within normal limits, normal kidney liver and pancreatic functions. First set of cardiac enzymes are negative Second set of cardiac enzymes are also negative, delta troponin is negative, patient tolerated p.o. and is symptoms free, patient will be discharged at this point Diagnosis Primary Impression: Nonspecific chest pain Patient Instructions: General Instructions, Noncardiac Chest Pain (ED) Scripts No Active Prescriptions or Reported Meds Disposition: 01 DISCHARGE HOME Condition: Stable Saúl Morales MD August 31, 2017 10:01
[2017-08-31 10:09] VITALS: BP 136/86; PULSE 112
[2017-08-31 10:13] LABS: AUTOMATED NEUTROPHIL # 8.1 TH/MM3 (1.8-7.7); BASOPHIL # 0.1 TH/MM3 (0-0.2); BASOPHIL % 0.7 % (0.0-2.0); EOSINOPHIL % 0.3 % (0.0-4.0); HEMATOCRIT 47.7 % (39.0-51.0); HEMOGLOBIN 16.4 GM/DL (13.0-17.0); LYMPH % 13.5 % (9.0-44.0); LYMPHOCYTE # 1.4 TH/MM3 (1.0-4.8); MEAN CELL VOLUME 93.9 FL (80.0-100.0); MEAN CORPUSCULAR HEMOGLOBIN 32.3 PG (27.0-34.0); MEAN CORPUSCULAR HGB CONC 34.4 % (32.0-36.0); MEAN PLATELET VOLUME 7.6 FL (7.0-11.0); MONO % 10.3 % (0.0-8.0); MONOCYTE # 1.1 TH/MM3 (0-0.9); NEUT % 75.2 % (16.0-70.0); PLATELET COUNT 255 TH/MM3 (150-450); RED BLOOD COUNT 5.08 MIL/MM3 (4.50-5.90); RED CELL DISTRIBUTION WIDTH 14.1 % (11.6-17.2); WHITE BLOOD COUNT 10.7 TH/MM3 (4.0-11.0)
[2017-08-31 10:36] LABS: ALBUMIN 4.2 GM/DL (3.4-5.0); AST (GOT) 21 U/L (15-37); BICARBONATE 22.9 MEQ/L (21.0-32.0); BLOOD UREA NITROGEN 8 MG/DL (7-18); CALCIUM 9.4 MG/DL (8.5-10.1); CHLORIDE 103 MEQ/L (98-107); CREATININE 0.99 MG/DL (0.60-1.30); GLOMERULAR FILTRATION RATE 107 ML/MIN (>89); GLUCOSE,RANDOM 75 MG/DL (74-106); SODIUM (NA) 137 MEQ/L (136-145)
[2017-08-31 10:40] LABS: ALKALINE PHOSPHATASE 86 U/L (45-117); ALT (GPT) 19 U/L (12-78); TOTAL BILIRUBIN ADULT 0.4 MG/DL (0.2-1.0); TOTAL PROTEIN 8.5 GM/DL (6.4-8.2); TROPONIN I LESS THAN 0.02 NG/ML (0.02-0.05)
[2017-08-31 10:44] LABS: ACETAMINOPHEN LESS THAN 2.0 MCG/ML (10.0-30.0)
--- NOTE | 2017-08-31 10:44 | RADRPT ---
EXAM DATE: 08/31/2017 10:31 AM EDT AGE/SEX: 32 years / Male INDICATIONS: Chest pain. CLINICAL DATA: This is the patient's initial encounter. Patient reports that signs and symptoms have been present for 1 day and indicates a pain score of 9/10. MEDICAL/SURGICAL HISTORY: . smokes None. [place] [facility] [place]. . FINDINGS: A single AP view of the chest demonstrates the lungs to be symmetrically aerated without evidence of mass, infiltrate or effusion. The cardiomediastinal contours are unremarkable. Osseous structures a re intact. There are multiple overlying electrocardiogram leads. CONCLUSION: No acute cardiopulmonary disease. Electronically signed by: Brayan Asif MD 08/31/2017 10:43 AM EDT
[2017-08-31 11:39] LABS: BILIRUBIN, URINE NEG (NEG); BLOOD, URINE NEG (NEG); GLUCOSE,URINE NEG (NEG); KETONE, URINE 10 mg/dL (NEG); NITRITE,URINE NEG (NEG); URINE COLOR YELLOW (YELLW/STRAW); URINE LEUKOCYTE ESTERASE NEG (NEG)
[2017-08-31] MEDS ORDERED: ONDANSETRON ODT 4 MG TAB PO ONE (12:30)
[2017-08-31 13:18] LABS: TROPONIN I LESS THAN 0.02 NG/ML (0.02-0.05)
--- NOTE | 2017-08-31 13:53 | EKG ---
Date Performed: 08/31/2017 Time Performed: 09:51:37 PTAGE: 32 years EKG: SINUS TACHYCARDIA ABNORMAL RHYTHM ECG INTERPRETATION BASED ON A DEFAULT AGE OF 41 YEARS PREVIOUS TRACING : 02/27/2017 18.55 DOCTOR: Anderson Lowery Interpretating Date/Time 08/31/2017 13:51:38
== END 2017-08-31 14:34 | disposition home or self-care (01) ==
LOC: NEPE 09:22
DX: R07.9 Chest pain, unspecified (principal); F17.200 Nicotine dependence, unspecified, uncomplicated
CPT/HCPCS: 71045; 80053; 80307; 81001; 82550; 82552; 83690; 83880; 84484; 85025; 85379; 93005; 99285

== ENCOUNTER 2017-09-18 09:18 | Emergency (ER) | payer SELFPAY | END 2017-09-18 09:56 | disposition left against medical advice (07) | LOC: NED 09:18 | DX: R51 Headache (principal) | CPT/HCPCS: 99281 ==